=== PATIENT | female | born 1970 | race Caucasian/White ===

== ENCOUNTER 2024-04-12 15:26 | Outpatient (AMB) | payer BC, SELFPAY ==
[2024-04-12 15:25] VITALS: BP 98/66; PULSE 59; RESP 12; TEMP 36.9; O2SAT 99; BMI 25.1
--- NOTE | 2024-04-12 15:25 | A.OFFPC_ITS ---
Vital Signs 04/12/24 15:25 Height 5 ft 4 in Weight 146 lb 2 oz BMI 25.1 BP 98/66 Blood Pressure Location Rt brachial Position Sitting Respiration 12 Pulse 59 Pulse Source Pulse Oximeter Temp 98.4 F Temp Source Oral Pulse Oximetry (%) 99 Oxygen Delivery Method Room Air Intake Visit Reasons: NPV Intake Note: New patient visit Risk Manager Required: No Allergies morpine Allergy (Unknown, Uncoded 04/12/24 15:26) Hypotension Medication List - Last Reconciled 04/12/24 by Hyun Abbasi PA-C cholecalciferol (vitamin D3) 50 mcg PO DAILY multivitamin 1 tab PO DAILY Tobacco use date assessed: 03/21/24 Dental Screening Dental Screen Date: 03/21/24 HPI NPV HPI Details Patient is a 53-year-old female who presents today for a follow up. She is new to this practice and transferring from [facility]. She has a significant past medical history of asthma, vitamin-D deficiency, dyslipidemia, and insomnia. 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 Psych: Has tried trazodone but developed a headache with this. She tried amitriptyline we will found this ineffective for her insomnia. Wants to try something else. She is currently dealing with stressors with her daughter who suffers from severe anxiety. Mammogram: UTD Pap: Follows with Dr. Zamora, left oophrectomy Bone density: 2 years ago, normal Colonoscopy: April 2023, due in 10 years [facility] Medical History (Updated 04/12/24 @ 16:43 by Hyun Abbasi PA-C) Insomnia associated with menopause Asthma Environmental and seasonal allergies Hyperlipidemia Surgical History (Updated 04/12/24 @ 16:37 by Salma Mccoy CMA) H/O removal of cyst Family History (Updated 04/12/24 @ 16:39 by Salma Mccoy CMA) Mother No problems noted. Father No problems noted. Paternal Grandmother Colon cancer Social History Housing: House Patient Tobacco Use Status: Never used Tobacco e-Cigarette/Vaping Use: Never Used Second Hand Smoke Exposure: No service: No Current occupational exposures/hazards: No Cognitive needs: No Hearing needs: No Vision needs: No Questionnaire PHQ-9 Over the last 2 weeks, how often have you been bothered by any of the following problems? 1. Little interest or pleasure in doing things: not at all 2. Feeling down, depressed, or hopeless: not at all 3. Trouble falling or staying asleep, or sleeping too much: not at all 4. Feeling tired or having little energy: not at all 5. Poor appetite or overeating: not at all 6. Feeling bad about yourself - or that you are a failure or have let yourself or your family down: not at all 7. Trouble concentrating on things, such as reading the newspaper or watching television: not at all 8. Moving or speaking so slowly that other people could have noticed. Or the opposite - being so fidgety or restless that you have been moving around a lot more than usual: not at all 9. Thoughts that you would be better off or of hurting yourself in some way: not at all Total score: 0 Depression Screening Interpretation: Negative Depression Screening Done: Yes 37428 - PHQ-9 Billing: Yes Source: Developed by Drs. Tanner Arredondo, Bre Stout, Camacho Healy and colleagues, with an educational jose from [employer]™. Thrive Questionnaire Date Thrive assessed: 04/12/24 I am a: Patient What is your living situation today?: I have a steady place to live Within the past 12 months, did the food you bought not last and you didn't have the money to get more?: Never true Within the past 12 months, did you worry whether your food would run out before you got money to buy more?: Never true Do you have trouble paying for medicines?: No Do you have trouble getting transportation to medical appointments?: No Do you have trouble paying your heating and electricity bill?: No Do you have trouble taking care of your child, family member or friend?: No Do you have trouble with day-to-day activities such as bathing, preparing meals, shopping, managing finances, etc.?: No Are you currently unemployed and looking for a job?: No Are you interested in more education?: No Please select the resources that you would like help with: None Currently or been in a relationship where the following occur: no concerns reported THRIVE Score: 0 AUDIT C Alcohol Use Questionnaire (AUDIT-C) 1. How often do you have a drink containing alcohol?: Never 3. How often do you have six or more drinks on one occasion?: Never Total Score: 0 MARTÍN-7 AMB Questionnaire MARTÍN-7 Date MARTÍN - 7 assessed: 04/12/24 Feeling nervous, anxious, or on edge: 0 = Not at all Not being able to stop or control worryin = Not at all Worrying too much about different things: 0 = Not at all Trouble relaxin = Not at all Being so restless that it is hard to sit still: 0 = Not at all Becoming easily annoyed or irritable: 0 = Not at all Feeling afraid as if something awful might happen: 0 = Not at all Total MARTÍN-7 score (0-4 normal; 5-9 mild; 10-14 moderate; 15-21 severe): 0 Source: Developed by Drs. Tanner Arredondo, Bre Stout, Camacho Healy and colleagues, with an educational jose from [employer]™. MARTÍN-7 Assessment Billing MARTÍN-7 Assessment Tool: MARTÍN-7 Assessment 08180 Physical exam (Primary Care) Vital Signs: Last Vital Signs Temp 98.4 F 04/12/24 15:25 Pulse 59 04/12/24 15:25 Resp 12 04/12/24 15:25 BP 98/66 04/12/24 15:25 Pulse Ox 99 04/12/24 15:25 Oxygen Delivery Method Room Air 04/12/24 15:25 BMI result Body Mass Index 25.1 Tobacco/Smoking Status: Tobacco use Status Tobacco use date assessed 03/21/24 04/12/24 15:27 Patient Tobacco Use Status Never used Tobacco 04/12/24 15:27 e-Cigarette/Vaping Use Never Used 04/12/24 15:27 PHQ-9: PHQ-9 Score PHQ-9: Total score 0 04/12/24 16:05 Depression Screening Interpretation: Negative Thrive Assessment: Date of Thrive Assessment Date Thrive assessed 04/12/24 04/12/24 15:27 Currently or been in a relationship where the following occur: no concerns reported Const Orientation/consciousness: patient oriented x3 HENMT Ears: hearing grossly normal bilaterally Neck Thyroid: Thyroid normal Lymphatic: no lymphadenopathy noted Resp Auscultation: clear to auscultation bilaterally Cardio Rate: regular rate Rhythm: regular rhythm Heart sounds: S1 normal heart sound present and S2 normal heart sound present GI Inspection: Yes normal to inspection Palpation (GI): Soft to palpation and Other GI palpation findings present (nontender, no cva tenderness) Auscultation: normoactive bowel sounds Rectal Exam - Female: deferred Skin General skin exam: no rashes or lesions noted Neuro General: patient oriented x3, gait normal and no focal motor deficits Assessment and Plan Assessment & Plan (1) Hyperlipidemia: Code(s): E78.5 - Hyperlipidemia, unspecified Qualifiers: Hyperlipidemia type: pure hypercholesterolemia Qualified Code(s): E78.00 - Pure hypercholesterolemia, unspecified Plan: Lipids ordered. We will monitor. (2) Environmental and seasonal allergies: Code(s): J30.89 - Other allergic rhinitis Plan: Following with Allergy and immunology. Advised to try Xyzal and Flonase (3) Insomnia associated with menopause: Code(s): N95.1 - Menopausal and female climacteric states Plan: We will try hydroxyzine. Discussed risks and benefits and adverse effects. Plan Follow up in 3 months. Sooner if needed. Patient understands and agrees with the plan. Orders: Orders Complete Blood Count Auto Diff Today E78.00 - Pure hypercholesterolemia, unspecified, J30.89 - Other allergic rhinitis Lipid Panel Today E78.00 - Pure hypercholesterolemia, unspecified, J30.89 - Other allergic rhinitis TSH reflex Free T4 Today E78.00 - Pure hypercholesterolemia, unspecified, J30.89 - Other allergic rhinitis Comprehensive [place]. Panel Fast Today E78.00 - Pure hypercholesterolemia, unspecified, J30.89 - Other allergic rhinitis Referrals Dermatology Referral R23.9 - Unspecified skin changes Medications: New hydroxyzine HCl 25 mg PO BEDTIME 90 tabs 0RF Coding Level of Care Code Est Pt Level 4 (08672) Complex EM visit Add On G2211 Diagnoses Pure hypercholesterolemia E78.00 Hyperlipidemia type: pure hypercholesterolemia Environmental and seasonal allergies J30.89 Insomnia associated with menopause N95.1 Additional Codes MARTÍN-7 Assessment Billing - MARTÍN-7 Assessment Tool: MARTÍN-7 Assessment 69860 ([id number])
== END 2024-04-12 16:44 | disposition home or self-care (01) ==
PROVIDERS: Visit Provider Physician Assistant
DX: E78.00 Pure hypercholesterolemia, unspecified (principal); J30.89 Other allergic rhinitis; N95.1 Menopausal and female climacteric states
CPT/HCPCS: 99214; G2211

== ENCOUNTER 2024-05-29 09:30 | Outpatient (AMB) | payer BC, SELFPAY ==
--- NOTE | 2024-05-29 09:38 | MHC.OFFWIV ---
Intake Vital Signs 05/29/24 09:39 Height 5 ft 4 in Weight 148 lb BMI 25.4 BP 120/70 Blood Pressure Location Lt brachial Position Sitting Respiration 13 Pulse 70 Pulse Source Pulse Oximeter Pulse Oximetry (%) 98 Oxygen Delivery Method Room Air Intake Visit Reasons: est/ ear pain Intake Note: Patient is here with bilateral ear pain. Patient is supposed to fly next week. Patient reports her pcp is Luciana and she will be transferring to Dr. Sanchez. Patient Tobacco Use Status: Never used Tobacco Elevated Motorman Required: No Allergies morpine Allergy (Unknown, Uncoded 05/29/24 10:16) Hypotension Medication List - Last Reconciled 05/29/24 by Raysa Youngblood, [facility]- albuterol-budesonide 90-80 mcg/actuation (Airsupra) 2 inhalations inhalation Q4-6H PRN cetirizine (Zyrtec) 10 mg PO DAILY PRN cholecalciferol (vitamin D3) 50 mcg PO DAILY fluticasone propionate 50 mcg/actuation (Flonase Allergy Relief) 2 sprays intranasal DAILY hydroxyzine HCl 25 mg PO BEDTIME multivitamin 1 tab PO DAILY prednisone 20 mg PO BID Do you need a note to return to daycare/school/sports/work: No HPI HPI Comments History of Present Illness Details 53-year-old female here today with complaints of fluid in her ears. She reports a longstanding history fluid in both ears. Reports that her symptoms seem to get worse around February and March and then develop acute otitis media by June each year. She was referred to ENT in the past by her primary care. However she was not able to see the specialist. She was then referred to Allergy and immunology. During this visit around March she was told of scar tissue on the right with bulging but no infection. Facial x-ray, chest x-ray and labs were done at this time. She was also given to nasal sprays. A nasal sprays her helpful for about 3 weeks and then they stopped working. She returned to the office in April for re-evaluation. She was given a new nasal spray and told that the fluid was still present in her ears. Today she presents as she has flying on the to go on a cruise in his worried about the fluid in her ears. Further reports 10 days ago starting to feel like she was ?hit by a truck?, with mild congestion, heavy sensation in ears, muffled hearing and a hoarse voice. Home COVID test negative x2. Has tried several [id number]-kkj-mvqvngh medications to include Sudafed, NyQuil, Zyrtec along with the Neti pot without relief. She has since stopped using prescribed nasal sprays and is only using Flonase. She did go to urgent care yesterday for this complaint and was given a prescription for prednisone which she did not start yet. She just had an appointment with ENT scheduled for Wednesday with Dr. Mix at 09:00. Her insurance requires a referral for this She also would like to discuss insomnia. She is currently prescribed hydroxyzine 25 mg. sHe is taking 75 mg without relief. Has tried several uxbq-paj-zogibrx medications of which the active ingredients have been diphenhydramine. Wonders what else that she can take. She does report that she is prescribed trazodone 50 mg in the past as well without effect. EXAM: Awake alert NAD Sclera and conjunctiva clear bilat Nares patent, turbinates pale and edematous, no sinus tenderness with palpation bilat TM intact with effusions bilat, trace fluid bubbles on the right MMM, pharynx WNL RRR LS CTAB PFSH Medical History (Updated 05/29/24 @ 11:15 by [facility]) Insomnia associated with menopause Asthma Environmental and seasonal allergies Hyperlipidemia Surgical History (Updated 04/12/24 @ 16:37 by Salma Mccoy CMA) H/O removal of cyst Family History (Updated 04/12/24 @ 16:39 by Salma Mccoy CMA) Mother No problems noted. Father No problems noted. Paternal Grandmother Colon cancer Social History (Updated 04/12/24 @ 16:37 by Salma Mccoy CMA) Housing: House Patient Tobacco Use Status: Never used Tobacco e-Cigarette/Vaping Use: Never Used Second Hand Smoke Exposure: No service: No Current occupational exposures/hazards: No Cognitive needs: No Hearing needs: No Vision needs: No Review of Systems Const All systems reviewed & are unremarkable except as noted in HPI and below Physical Exam Vital Signs: Last Vital Signs Pulse 70 05/29/24 09:39 Resp 13 05/29/24 09:39 BP 120/70 05/29/24 09:39 Pulse Ox 98 05/29/24 09:39 Oxygen Delivery Method Room Air 05/29/24 09:39 BMI result Body Mass Index 25.4 Assessment & Plan Assessment & Plan (1) Insomnia associated with menopause: Code(s): N95.1 - Menopausal and female climacteric states (2) Eustachian tube dysfunction: Code(s): H69.90 - Unspecified Eustachian tube disorder, unspecified ear Qualifiers: Laterality: bilateral Qualified Code(s): H69.93 - Unspecified Eustachian tube disorder, bilateral Plan: . Plan . This note is constructed using voice recognition software. While every effort has been made to ensure accuracy in field irrigation worker, still errors may have been included Sometimes, these errors may affect the content or meaning of the given sentence . Total time spent caring for the patient today was 40 minutes. This includes time spent before the visit reviewing the chart, time spent during the visit, and time spent after the visit on documentation Patient Instructions: Start prednisone so that you complete course on Wednesday, before you see ENT PCP notified of need for ENT referral Try unisom 1/2-1 tab as needed for sleep OTC STOP hydroxyzine Use Afrin x 1 before flight and then no more OK for saline nasal rinses and to cont flonase RTO for est care appt, sooner as needed Coding Level of Care Code Est Pt Level 5 (62852) Diagnoses Insomnia associated with menopause N95.1 Dysfunction of both eustachian tubes H69.93 Laterality: bilateral
[2024-05-29 09:39] VITALS: BP 120/70; PULSE 70; RESP 13; O2SAT 98; BMI 25.4
== END 2024-05-29 11:10 | disposition home or self-care (01) ==
PROVIDERS: PCP Physician Assistant; Visit Provider Nurse Practitioner Family
DX: N95.1 Menopausal and female climacteric states (principal); H69.93 Unspecified Eustachian tube disorder, bilateral
CPT/HCPCS: 99215

== ENCOUNTER → 2024-08-08 15:33 | Outpatient (AMB) | payer BC, SELFPAY ==
--- NOTE | 2024-08-08 15:35 | MHC.PC.OV ---
Vital Signs 08/08/24 15:39 Height 5 ft 4 in Weight 151 lb 4 oz BMI 26.0 BP 130/70 Blood Pressure Location Rt brachial Position Sitting Respiration 15 Pulse 60 Pulse Source Pulse Oximeter Pulse Oximetry (%) 96 Oxygen Delivery Method Room Air Intake Visit Reasons: cpe trans of care to micha Intake Note: physical and to establish care with micha. Allergies morpine Allergy (Unknown, Uncoded 05/29/24 10:16) Hypotension Medication List - Last Reconciled 08/08/24 by Raysa Youngblood, [facility]- albuterol-budesonide 90-80 mcg/actuation (Airsupra) 2 inhalations inhalation Q4-6H PRN cetirizine (Zyrtec) 10 mg PO DAILY PRN cholecalciferol (vitamin D3) 50 mcg PO DAILY fluticasone propionate 50 mcg/actuation (Flonase Allergy Relief) 2 sprays intranasal DAILY hydroxyzine HCl 100 mg (2 x 50 mg) PO BEDTIME multivitamin 1 tab PO DAILY Tobacco use date assessed: 08/08/24 Dental Screening Dental Screen Date: 08/08/24 Did you have a dental visit in the last 12 months?: Yes Did you have a dental problem in the last 6 months where you did not have access to dental care?: No Was dental information given to patient?: Patient has dentist HPI HPI Comments History of Present Illness Details 53-year-old female with mild intermittent asthma, vitamin-D deficiency, hyperlipidemia, insomnia, seasonal allergies s/p removal of cyst, L shoulder surgery 07/28/24 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 CVD Health maintenance Mammogram: UTD Pap: Follows with Dr. Zamora, left oophrectomy 2021 Bone density: 2021 years ago, normal Colonoscopy: April 2023, due in 10 years Tdap unknown last date Specialists: [facility] Ortho Counselor Here today for CPE. Status post left shoulder surgery 07/28/2024 for calcifications and a cyst. Performed by [facility]. Was prescribed oxycodone and Tylenol for pain management. She did develop nausea and vomiting. This resolved once she stopped. She started to use a leave for better pain control. She did develop constipation as a result of the oxycodone. Used Erasmo seeds and Dulcolax to help without relief. She goes for her postop follow up tomorrow. She is active with physical therapy for her recovery. She would have a consult with ENT for her chronic Eustachian tube dysfunction. She also had pulmonary function testing done. Reports that she did not do so well. I do not have a copy of this report. Be that as it may she is prescribed airsupra however does not take as she does not feel like her asthma symptoms are that bad. She does use a p.r.n. albuterol as needed especially during cold season and exercises. She also was undergoing allergy testing however this was done while she was on hydroxyzine therefore the results were skewed. She will be returning for a repeat. In regards to her asthma she was able to run a [address] race without any symptoms. She is in counseling, mood is stable. Has chronic insomnia. Trazodone in the past gave her headache. Currently using hydroxyzine. Self increase to 100 mg which seems to help with the insomnia although she still is not sleeping through the night. Occasionally uses melatonin addition. She did have a dermatology evaluation, reports that the exam was clear. I do not have that report. She is up-to-date on her eye exam. Routine follow up with dentist. Plan Try miralax to help w constipation, if not effective can try EVOO Try Unisom to help sleep. Discouraged increase in hydroxyzine any further. Continue take all medications as prescribed. Continue follow up with care team Recommend Flu, covid, tdap and pcv vaccines Fasting labs to be done as soon as possible please. Return to the office in 6 months for routine follow up, sooner as needed. This note is constructed using voice recognition software. While every effort has been made to ensure accuracy in drafter directional survey, still errors may have been included Sometimes, these errors may affect the content or meaning of the given sentence . [facility] Medical History (Updated 08/08/24 @ 17:02 by CHUY Grant-BERTIN) Insomnia associated with menopause Asthma Environmental and seasonal allergies Hyperlipidemia Surgical History (Updated 08/08/24 @ 17:02 by MERCY Grant) Status post shoulder surgery H/O removal of cyst Family History (Updated 04/12/24 @ 16:39 by Salma Mccoy CMA) Mother No problems noted. Father No problems noted. Paternal Grandmother Colon cancer Social History (Updated 04/12/24 @ 16:37 by Salma Mccoy CMA) Housing: House Patient Tobacco Use Status: Never used Tobacco e-Cigarette/Vaping Use: Never Used Second Hand Smoke Exposure: No service: No Current occupational exposures/hazards: No Cognitive needs: No Hearing needs: No Vision needs: No Questionnaire PHQ-9 Over the last 2 weeks, how often have you been bothered by any of the following problems? 1. Little interest or pleasure in doing things: not at all 2. Feeling down, depressed, or hopeless: not at all 3. Trouble falling or staying asleep, or sleeping too much: more than half the days 4. Feeling tired or having little energy: not at all 5. Poor appetite or overeating: not at all 6. Feeling bad about yourself - or that you are a failure or have let yourself or your family down: not at all 7. Trouble concentrating on things, such as reading the newspaper or watching television: not at all 8. Moving or speaking so slowly that other people could have noticed. Or the opposite - being so fidgety or restless that you have been moving around a lot more than usual: not at all 9. Thoughts that you would be better off or of hurting yourself in some way: not at all Total score: 2 Depression Screening Interpretation: Negative Depression Screening Done: Yes 09806 - PHQ-9 Billing: Yes Source: Developed by Drs. Tanner Arredondo, Bre Stout, Camacho Healy and colleagues, with an educational jose from [employer]. Thrive Questionnaire Date Thrive assessed: 08/08/24 I am a: Patient What is your living situation today?: I have a steady place to live Within the past 12 months, did the food you bought not last and you didn't have the money to get more?: Never true Within the past 12 months, did you worry whether your food would run out before you got money to buy more?: Never true Do you have trouble paying for medicines?: No Do you have trouble getting transportation to medical appointments?: No Do you have trouble paying your heating and electricity bill?: No Do you have trouble taking care of your child, family member or friend?: No Do you have trouble with day-to-day activities such as bathing, preparing meals, shopping, managing finances, etc.?: No Are you currently unemployed and looking for a job?: No Are you interested in more education?: No Please select the resources that you would like help with: None THRIVE Score: 0 AUDIT C Alcohol Use Questionnaire (AUDIT-C) 1. How often do you have a drink containing alcohol?: Monthly or less 2. How many drinks containing alcohol do you have on a typical day when you are drinking?: 1 or 2 3. How often do you have six or more drinks on one occasion?: Never Total Score: 1 Score Reviewed/Action Taken: Yes MARTÍN-7 AMB Questionnaire MARTÍN-7 Date MARTÍN - 7 assessed: 08/08/24 Feeling nervous, anxious, or on edge: 0 = Not at all Not being able to stop or control worryin = Not at all Worrying too much about different things: 0 = Not at all Trouble relaxin = Not at all Being so restless that it is hard to sit still: 0 = Not at all Becoming easily annoyed or irritable: 0 = Not at all Feeling afraid as if something awful might happen: 0 = Not at all Total MARTÍN-7 score (0-4 normal; 5-9 mild; 10-14 moderate; 15-21 severe): 0 Source: Developed by Drs. Tanner Arredondo, Bre Stout, Camacho Healy and colleagues, with an educational jose from [employer]. MARTÍN-7 Assessment Billing MARTÍN-7 Assessment Tool: MARTÍN-7 Assessment 84467 ACT Questionnaire In the past 4 weeks, how much of the time did your asthma keep you from getting as much done at work, school or at home?: None of the time During the past 4 weeks, how often have you had shortness of breath?: 1-2 times a week During the past 4 weeks, how often did your asthma symptoms wake you up at night or earlier than usual in the morning?: Not at all During the past 4 weeks, how often have you had to use your rescue inhaler or nebulizer medication?: Not at all How would you rate your asthma control during the past 4 weeks?: Well controlled ACT Interpretation: Negative Score: 23 Review of Systems Const Details: Constitutional: Denies fever. Skin: Denies rash. Eye: Denies eye pain. ENMT: Denies sore throat and nasal congestion. Respiratory: Denies shortness of breath and cough. Gastrointestinal: Denies nausea, vomiting or abdominal pain. Cardiovascular: Denies chest pain and syncope. Genitourinary: Denies dysuria. Musculoskeletal: Denies back pain and extremity pain. Neurologic: Denies headaches, confusion, and weakness. Psychiatric: Denies suicidal thoughts and substance abuse. Allergy/ Immunologic: Denies impaired immunity. Physical exam (Primary Care) Vital Signs: Last Vital Signs Pulse 60 08/08/24 15:39 Resp 15 08/08/24 15:39 BP 130/70 08/08/24 15:39 Pulse Ox 96 08/08/24 15:39 Oxygen Delivery Method Room Air 08/08/24 15:39 BMI result Body Mass Index 26.0 Tobacco/Smoking Status: Tobacco use Status Tobacco use date assessed 08/08/24 08/08/24 15:41 Patient Tobacco Use Status Never used Tobacco 08/08/24 15:36 e-Cigarette/Vaping Use Never Used 08/08/24 15:36 PHQ-9: PHQ-9 Score PHQ-9: Total score 2 08/08/24 15:51 Depression Screening Interpretation: Negative Thrive Assessment: Date of Thrive Assessment Date Thrive assessed 08/08/24 08/08/24 15:43 Const Other: General: Well developed, well nourished, in no acute distress. Appears stated age. Head: Normocephalic, atraumatic. Eyes: Pupils are equal, round and reactive to light and accommodation. Conjunctivae are clear. Vision grossly normal. Ears: TMs clear AU, EACS WNL Nose: Patent, without discharge. Mouth: There are no ulcers or lesions noted. No inflammation, no post nasal drip, no plaques nor exudates. Neck: Supple, no adenopathy or thyromegaly. Lungs: Clear to auscultation bilaterally. No rales, rhonchi or wheeze noted. Good air flow in all nieves. Heart: Regular rate and rhythm. No murmurs, click, rubs or gallops are noted. Abdomen: Bowel sounds present in all quadrants. The abdomen is soft, nontender, with no masses or organomegaly noted. No hernias are noted. With palpation in the right upper quadrant, patient did wince. There was no rebound tenderness. She did not complain of any abdominal pain prior to the onset of the exam. Musculoskeletal: Joints are nontender, without swelling, redness, or effusions. Range of motion is observed to be normal. Left shoulder with restricted range of motion in the postoperative period, to single sutures noted to left deltoid, free of infection. Pulses: Peripheral pulses are equal and palpable bilaterally. Extremities: No clubbing, cyanosis nor edema is noted. Neurologic: Gait and station normal. Cranial Nerves 2-12 intact. Motor strength grossly symmetrical and intact. No sensory loss. Balance normal. Skin: No rashes, ulcers, or lesions noted. Turgor is good. Skin color is good. Hair and nails are without abnormalities. Psych: Normal eye contact, affect and mood appropriate, and normal interactions. Patient is alert and appropriate to context. Assessment and Plan Assessment & Plan (1) Encounter for general adult medical examination without abnormal findings: Code(s): Z00.00 - Encounter for general adult medical examination without abnormal findings (2) Eustachian tube dysfunction: Code(s): H69.90 - Unspecified Eustachian tube disorder, unspecified ear Qualifiers: Laterality: bilateral Qualified Code(s): H69.93 - Unspecified Eustachian tube disorder, bilateral (3) Insomnia associated with menopause: Code(s): N95.1 - Menopausal and female climacteric states (4) Environmental and seasonal allergies: Code(s): J30.89 - Other allergic rhinitis (5) Hyperlipidemia: Code(s): E78.5 - Hyperlipidemia, unspecified Qualifiers: Hyperlipidemia type: pure hypercholesterolemia Qualified Code(s): E78.00 - Pure hypercholesterolemia, unspecified (6) Right upper quadrant pain: Code(s): R10.11 - Right upper quadrant pain (7) Mild intermittent asthma in adult without complication: Code(s): J45.20 - Mild intermittent asthma, uncomplicated (8) Status post shoulder surgery: Comment: left 07/28/24 [facility] Code(s): Z98.890 - Other specified postprocedural states Orders: Orders Vitamin B12 and Folate Today Z00.00 - Encounter for general adult medical examination without abnormal findings Vitamin D 25-OH Total Today Z00.00 - Encounter for general adult medical examination without abnormal findings Amylase Today Z00.00 - Encounter for general adult medical examination without abnormal findings Lipase Today Z00.00 - Encounter for general adult medical examination without abnormal findings Comprehensive [place]. Panel Fast Today Z00.00 - Encounter for general adult medical examination without abnormal findings Complete Blood Count no Diff Today Z00.00 - Encounter for general adult medical examination without abnormal findings Hemoglobin A1c Today Z00.00 - Encounter for general adult medical examination without abnormal findings Lipid Panel Today Z00.00 - Encounter for general adult medical examination without abnormal findings Microalbumin, Random (w Creat) Today Z00.00 - Encounter for general adult medical examination without abnormal findings TSH reflex Free T4 Today Z00.00 - Encounter for general adult medical examination without abnormal findings Medications: New albuterol sulfate 90 mcg/actuation 2 puffs inhalation Q4-6H 30 days PRN 8.5 grams 0RF shortness of breath or wheezing Coding Level of Care Code Est Pt Prev Care 40-64y(86523) Diagnoses Encounter for general adult medical examination without abnormal findings Z00.00 Dysfunction of both eustachian tubes H69.93 Laterality: bilateral Insomnia associated with menopause N95.1 Environmental and seasonal allergies J30.89 Pure hypercholesterolemia E78.00 Hyperlipidemia type: pure hypercholesterolemia Right upper quadrant pain R10.11 Mild intermittent asthma in adult without complication J45.20 Status post shoulder surgery Z98.890 Additional Codes MARTÍN-7 Assessment Billing - MARTÍN-7 Assessment Tool: MARTÍN-7 Assessment 27372 ([id number])
[2024-08-08 15:39] VITALS: BP 130/70; PULSE 60; RESP 15; O2SAT 96; BMI 26.0
== END ==
PROVIDERS: PCP Physician Assistant; Visit Provider Nurse Practitioner Family
DX: Z00.00 Encounter for general adult medical examination without abnormal findings (principal); H69.93 Unspecified Eustachian tube disorder, bilateral; N95.1 Menopausal and female climacteric states; J30.89 Other allergic rhinitis; E78.00 Pure hypercholesterolemia, unspecified; R10.11 Right upper quadrant pain; J45.20 Mild intermittent asthma, uncomplicated; Z98.890 Other specified postprocedural states
CPT/HCPCS: 99396

== ENCOUNTER 2024-08-12 07:22 | Outpatient (REF) | payer BC, SELFPAY ==
[2024-08-12 07:50] LABS: MANUAL DIFF FLAG NO
[2024-08-12 08:55] LABS: Basophils Absolute Auto 0.1 X10*3/uL (0.0-0.2); Basophils Percent Auto 1.9 % (0-2); Eosinophils Absolute Auto 0.2 X10*3/uL (0.0-0.4); Eosinophils Percent Auto 4.9 % (0-4); Hemoglobin 13.7 g/dl (12.0-16.0); Imm Gran Abs Auto 0.01 X10*3/uL (0.00-0.03); Imm Gran Pct Auto 0.2 % (0.0-0.4); Lymphocytes Absolute Auto 1.5 X10*3/uL (1.2-4.9); Lymphocytes Percent Auto 35.6 % (20-40); Mean Corpuscular HGB Conc 33.4 g/dl (31.0-35.0); Mean Corpuscular Hemoglobin 30.2 pg (27.0-33.0); Mean Corpuscular Volume 90.3 fL (80.0-98.0); Monocytes Absolute Auto 0.3 X10*3/uL (0.1-1.2); Neutrophils Absolute Auto 2.1 x10*3/uL (2.0-8.3); Neutrophils Percent Auto 49.4 % (45-73); Platelet Count 274 X10*3/uL (160-400); Red Blood Count 4.54 X10*6/uL (4.20-5.50); Red Cell Distribution Width 11.8 % (11.0-16.0); White Blood Count 4.3 X10*3/uL (4.8-10.8)
[2024-08-12 09:10] LABS: Estimated Average Glucose 103 mg/dL; Hemoglobin A1c % 5.2 % (<6.0)
[2024-08-12 09:20] LABS: Amylase 76 U/L (28-100)
[2024-08-12 09:30] LABS: Alanine Aminotransferase 20 U/L (0-31); Albumin Level 4.3 g/dL (3.5-5.0); Alkaline Phosphatase 50 U/L (39-117); Anion Gap 11 (12-20); Aspartate Amino Transferase 26 U/L (5-31); Bilirubin Total 0.5 mg/dL (0.0-1.0); Blood Urea Nitrogen 11 mg/dL (9-16); Carbon Dioxide 29 mmol/L (22-29); Chloride 103 mmol/L (96-108); Cholesterol 258 mg/dL (<200); Estimated Glomerular Filt Rate > 60; Glucose Fasting 102 mg/dL (60-99); HDL Cholesterol 85 mg/dL (>40); LDL Cholesterol Calculated 163 mg/dL (<100); Lipase 24 U/L (8-78); Potassium 4.2 mmol/L (3.3-5.1); Sodium 139 mmol/L (135-145); Total Protein 7.1 g/dL (6.5-8.0); Triglycerides 52 mg/dL (<150)
[2024-08-12 09:37] LABS: TSH reflex Free T4 2.34 uIU/mL (0.32-4.0)
[2024-08-12 09:49] LABS: Vitamin D 25-OH Total 63.9 ng/mL (>30)
[2024-08-12 09:57] LABS: Microalbumin Urine < 5.0 mg/L
[2024-08-12 10:46] LABS: Folate 16.7 ng/mL (> or = 4.0); Vitamin B12 1105 pg/mL (200-900)
== END 2024-08-12 07:23 | disposition home or self-care (01) ==
LOC: HO.LAB 07:22
PROVIDERS: Physician Assistant; PCP Nurse Practitioner Family; Visit Provider Nurse Practitioner Family
DX: Z00.00 Encounter for general adult medical examination without abnormal findings (principal); E78.00 Pure hypercholesterolemia, unspecified; J30.89 Other allergic rhinitis; Z13.1 Encounter for screening for diabetes mellitus
CPT/HCPCS: 36415; 80053; 80061; 82043; 82150; 82306; 82570; 82607; 82746; 83036; 83690; 84443; 85025; 85027

== ENCOUNTER 2024-10-17 10:27 | Outpatient (AMB) | payer BC, SELFPAY ==
--- NOTE | 2024-10-17 10:29 | A.OFFPC_ITS ---
Vital Signs 10/17/24 10:31 Height 5 ft 4 in Weight 151 lb BMI 25.9 BP 132/82 Blood Pressure Location Lt brachial Position Sitting Respiration 13 Pulse 68 Pulse Source Pulse Oximeter Pulse Oximetry (%) 100 Oxygen Delivery Method Room Air Intake Visit Reasons: Tightness in chest Intake Note: Patient complaining of tightness in chest Barrer And Tacker Required: No Allergies morpine Allergy (Unknown, Uncoded 05/29/24 10:16) Hypotension Medication List - Last Reconciled 10/17/24 by TRI GrantP- albuterol sulfate 90 mcg/actuation 2 puffs inhalation Q4-6H PRN 30 days albuterol-budesonide 90-80 mcg/actuation (Airsupra) 2 inhalations inhalation Q4- 6H PRN cetirizine (Zyrtec) 10 mg PO DAILY PRN cholecalciferol (vitamin D3) 50 mcg PO DAILY fluticasone propionate 50 mcg/actuation (Flonase Allergy Relief) 2 sprays intranasal DAILY hydroxyzine HCl 100 mg (2 x 50 mg) PO BEDTIME multivitamin 1 tab PO DAILY Tobacco use date assessed: 08/08/24 Dental Screening Dental Screen Date: 08/08/24 HPI HPI Comments History of Present Illness Details Chief Complaint The patient reports experiencing tightness across the chest reminiscent of a cramp sensation. History of Present Illness The patient is a 53-year-old female presenting with episodes of chest tightness. This symptom began abruptly last week while she was completing a course of prednisone for management of shoulder pain post-surgery. She describes the chest discomfort as a cramping sensation across the upper chest, which tightens like a vice blow pit helper, occurring both last week and again this morning. The initial episode occurred during prednisone tapering, characterized by intense tightness without any associated gastrointestinal symptoms. The second episodic occurrence happened while she was making the bed, described similarly to a muscle cramp but localized in the chest area. The patient denies changes in diet or lifestyle that might have contributed to the episodes. Additionally, the patient has a history of L shoulder pain following surgical intervention, which persisted despite undergoing physical therapy. She had consulted a physiotherapist who suggested possible cervical issues contributing to her pain, recommending a cervical MRI to assess potential discogenic involvement with a focus on the brachial plexus. Prior to surgery, no MRI was conducted, and during recent assessments, nerve pain was considered which led to improvements with prednisone treatment. The patient's elevated cholesterol levels have been noted previously, and an upcoming appointment was scheduled to address this concern. Health Maintenance - Discussion on cholesterol management w as noted for an upcoming visit but not detailed in this conversation. - Stress test history includes no prior cardiac stress tests for the patient. Review of Systems - Cardiovascular: Reports episodes of ch est tightness, likened to muscle cramps. - Musculoskeletal: Denies current should er pain but reports a history of shoulder surgery and subsequent pain. Physical Exam Awake alert NAD - Cardiovascular- Heart sounds were norm al. - Respiratory- Lung sounds were clear on auscultation. - Musculoskeletal- Chest wall tenderness noted upon palpation L side, but not replicating the described cramping sensation. BARAHONA x 4 Results - EKG: Unremarkable, with normal finding s reported. Patient was informed and verbally consented to the use of an ambient scribe for clinic note documentation during this visit. Patient Instructions - Schedule a cervical MRI at the [facility]. - Arrange for a cardiac stress test thro [facility]. - Monitor for any further episodes of ch est tightness, particularly if associated with symptoms such as sweating, nausea, or prolonged discomfort, which would warrant a visit to the emergency room. - Prepare for the scheduled cholesterol evaluation and adhere to any preparatory instructions provided by staff. - Contact the clinic if there are questi ons or worsening symptoms. Total time spent caring for the patient today was 40 minutes. This includes time spent before the visit reviewing the chart, time spent during the visit, and time spent after the visit on documentation PFSH Medical History (Updated 10/17/24 @ 12:03 by CHUY Grant-BERTIN) Insomnia associated with menopause Asthma Environmental and seasonal allergies Hyperlipidemia Surgical History (Updated 08/08/24 @ 17:02 by CHUY Grant-BERTIN) Status post shoulder surgery H/O removal of cyst Family History (Updated 04/12/24 @ 16:39 by Salma Mccoy CMA) Mother No problems noted. Father No problems noted. Paternal Grandmother Colon cancer Social History (Updated 04/12/24 @ 16:37 by Salma Mccoy CMA) Housing: House Patient Tobacco Use Status: Never used Tobacco e-Cigarette/Vaping Use: Never Used Second Hand Smoke Exposure: No service: No Current occupational exposures/hazards: No Cognitive needs: No Hearing needs: No Vision needs: No Questionnaire Thrive Questionnaire Date Thrive assessed: 10/17/24 I am a: Patient What is your living situation today?: I have a steady place to live Within the past 12 months, did the food you bought not last and you didn't have the money to get more?: Never true Within the past 12 months, did you worry whether your food would run out before you got money to buy more?: Never true Do you have trouble paying for medicines?: No Do you have trouble getting transportation to medical appointments?: No Do you have trouble paying your heating and electricity bill?: No Do you have trouble taking care of your child, family member or friend?: No Do you have trouble with day-to-day activities such as bathing, preparing meals, shopping, managing finances, etc.?: No Are you currently unemployed and looking for a job?: No Are you interested in more education?: No Please select the resources that you would like help with: None Currently or been in a relationship where the following occur: No concerns reported THRIVE Score: 0 AUDIT C Alcohol Use Questionnaire (AUDIT-C) 1. How often do you have a drink containing alcohol?: Monthly or less 2. How many drinks containing alcohol do you have on a typical day when you are drinking?: 1 or 2 3. How often do you have six or more drinks on one occasion?: Never Total Score: 1 MARTÍN-7 AMB Questionnaire MARTÍN-7 Date MARTÍN - 7 assessed: 08/08/24 Feeling nervous, anxious, or on edge: 0 = Not at all Not being able to stop or control worryin = Not at all Worrying too much about different things: 0 = Not at all Trouble relaxin = Not at all Being so restless that it is hard to sit still: 0 = Not at all Becoming easily annoyed or irritable: 0 = Not at all Feeling afraid as if something awful might happen: 0 = Not at all Total MARTÍN-7 score (0-4 normal; 5-9 mild; 10-14 moderate; 15-21 severe): 0 Source: Developed by Drs. Tanner Arredondo, Bre Stout, Camacho Healy and colleagues, with an educational jose from [employer]. Physical exam (Primary Care) Vital Signs: Last Vital Signs Pulse 68 10/17/24 10:31 Resp 13 10/17/24 10:31 BP 132/82 10/17/24 10:31 Pulse Ox 100 10/17/24 10:31 Oxygen Delivery Method Room Air 10/17/24 10:31 BMI result Body Mass Index 25.9 Tobacco/Smoking Status: Tobacco use Status Tobacco use date assessed 08/08/24 10/17/24 10:30 Patient Tobacco Use Status Never used Tobacco 10/17/24 10:30 e-Cigarette/Vaping Use Never Used 10/17/24 10:30 Thrive Assessment: Date of Thrive Assessment Date Thrive assessed 10/17/24 10/17/24 10:30 Currently or been in a relationship where the following occur: No concerns reported Office Procedures EKG [id number], Complete Coding Level of Care Code Est Pt Level 5 (71476) Complex EM visit Add On G2211 Diagnoses Cervical radicular pain M54.12 Chest pain, unspecified type R07.9 Chest pain type: unspecified CPT Codes EKG - CPT: 75934-[id number], Complete ([id number]) Assessment & Plan Assessment & Plan (1) Cervical radicular pain: Code(s): M54.12 - Radiculopathy, cervical region Category: Medical (2) Chest pain: Code(s): R07.9 - Chest pain, unspecified Category: Medical Qualifiers: Chest pain type: unspecified Qualified Code(s): R07.9 - Chest pain, unspecified Plan . Orders: Orders CA stress test Today R07.9 - Chest pain, unspecified AMB EKG-In Office Today Z13.6 - Encounter for screening for cardiovascular disorders MR cervical spine w con Today M54.12 - Radiculopathy, cervical region
[2024-10-17 10:31] VITALS: BP 132/82; PULSE 68; RESP 13; O2SAT 100; BMI 25.9
== END 2024-10-17 11:22 | disposition home or self-care (01) ==
PROVIDERS: PCP Nurse Practitioner Family; Visit Provider Nurse Practitioner Family
DX: M54.12 Radiculopathy, cervical region (principal); R07.9 Chest pain, unspecified

== ENCOUNTER → 2024-10-17 10:27 | Outpatient (BNVA) | payer BC, SELFPAY | PROVIDERS: PCP Nurse Practitioner Family; Visit Provider Nurse Practitioner Family | DX: R07.9 Chest pain, unspecified (principal); M54.12 Radiculopathy, cervical region | CPT/HCPCS: 93005 ==

== ENCOUNTER → 2024-10-20 08:58 | Outpatient (REF) | payer BC, SELFPAY ==
--- NOTE | 2024-10-20 09:01 | CA_ITS ---
Acquisition Time: 2024-10-20 09:31:03 Total Exercise Time: 00:09:21 Test Indications: R07.9 - Chest pain, unspecified Medications: SEE h Protocol: DINA Max HR: 166 BPM 99% of Pred: 167 BPM Max BP: 170/080 mmHG Max Work Load: 10.6 METS Exercise stress test with exercise 9 min 21 sec of Dina protocol, achieving 99% MPHR, without anginal symptoms, with one PVC, with normotensive response to exercise, without EKG changes meeting criteria for ischemia. Test reviewed with Dr King Referred By: Raysa Youngblood Overread By: MARGY GRAVES
== END ==
LOC: HO.CARD 08:58
PROVIDERS: PCP Nurse Practitioner Family; Visit Provider Nurse Practitioner Family
DX: R07.9 Chest pain, unspecified (principal)
CPT/HCPCS: 93017

== ENCOUNTER → 2024-10-20 09:01 | Outpatient (BNV) | payer BC, SELFPAY | PROVIDERS: PCP Nurse Practitioner Family; Visit Provider Nurse Practitioner Family | DX: I49.3 Ventricular premature depolarization (principal) | CPT/HCPCS: 93016; 93018 ==

== ENCOUNTER 2024-11-23 10:20 | Outpatient (REF) | payer BC, SELFPAY ==
--- OUTSIDE RECORDS SUMMARY | 2024-11-23 10:23 | XMS_ITS | Continuity of Care Document ---
Author Organization [facility] ter Address [address] [place] [id number]- Care Team Providers Care Process Safety Manager Name Role Phone Oneyda Alexander Primary Care Physician Encounter 11/17/24 - 11/18/[address] [address]- Attending Physician: Not on Staff, Attending MD Referring Physician: Not on Staff, Referring MD Encounter Type: [facility]RI Allergies, Adverse Reactions, Alerts Substance Criticality Severity Reaction Reaction Severity Status morphine Active Immunizations Given and Recorded Vaccine Date Status Refusal Reason SARS-CoV-2 mRNA (tojellyn 6m-4y) vacc 03/06/22 Recorded SARS-CoV-2 (COVID-19) mRNA BNT-162b2 vac 03/05/21 Recorded SARS-CoV-2 (COVID-19) mRNA BNT-162b2 vac 02/12/21 Recorded influenza virus vaccine, inactivated 09/04/20 [place] rded influenza virus vaccine, inactivated 11/07/07 [place] rded influenza virus vaccine, inactivated 09/22/04 [place] r[place] Tetanus Toxoid 11/29/13 Recorded pneumococcal 23-valent vaccine 11/07/07 Recorded tetanus-diphtheria toxoids (Td) 12/21/00 Recorded Medications Albuterol (Eqv-ProAir HFA) 90 mcg/inh inhalation aerosol 2 puffs, Inhalation, Every 6 hours, PRN Wheezing/Shortness of Breath, # 8.5 Gm, 1 Refills, Maintenance, 11/26/23 10:59:00 AM EST, [facility]/pharmacy #[id number], Partial fill upon patient request if the prescription is for a schedule II opioid drug., 2 puffs Inhalation Every 6 hours,PRN:Wheezing/Shortness of Breath, 163, cm, 11/26/23 10:40:00 EST, Height, 66.1, kg, 05/03/23 7:47:00 EDT, Dry Weight Start Date: 11/26/23 Status: Ordered Quantity: 8.5 Unit: g Repeat number: 2 Claritin 10 mg oral tablet 10 mg, 1, tablet, By Mouth, Daily, # 30 tablet, Refills 0, Maintenance, 11/26/23 10:39:00 AM EST, Partial fill upon patient request if the prescription is for a schedule II opioid drug. Start Date: 11/26/23 Status: Ordered Quantity: 30.0 Unit: tablet Repeat number: 1 cyclobenzaprine 10 mg oral tablet 10 mg, 1, tablet, By Mouth, 3 times a day, PRN, # 30 tablet, Refills 0, Tot. Refills 0, Maintenance, for spasm, 12/03/23 9:05:00 AM EST, Route to Pharmacy Electronically, [facility]/pharmacy #[id number], Partial fill upon patient request if the prescription is for a schedule II opioid drug., 163, cm, 11/26/23 10:40:00 EST, Height, 66.1, kg, 05/03/23 7:47:00 EDT, Dry Weight Start Date: 12/03/23 Status: Ordered Quantity: 30.0 Unit: tablet Repeat number: 1 Flovent HFA 110 mcg/inh inhalation aerosol 2 puffs, Inhalation, 2 times a day, # 12 Gm, 0 Refills, Maintenance, 07/13/22 2:50:00 PM EDT, Aerosol, [facility]/pharmacy #[id number], Partial fill upon patient request if the prescription is for a schedule II opioid drug., 164.1, cm, 07/13/22 14:02:00 EDT, Height, 62, kg, 04/22/22 12:17:00 EDT, Dry Weight Start Date: 07/13/22 Status: Ordered Quantity: 12.0 Unit: g Repeat number: 1 Melatonin Daily at bedtime, 0 Refills, Maintenance, 04/15/22 5:39:00 PM EDT, Partial fill upon patient requestif the prescription is for a schedule II opioid drug. Start Date: 04/15/22 Status: Ordered Repeat number: 1 Multivitamin Daily, 0 Refills, Maintenance, 04/15/22 5:39:00 PM EDT, Partial fill upon patient request if the prescription is for a schedule II opioid drug. Start Date: 04/15/22 Status: Ordered Repeat number: 1 NuLYTELY with Flavor Packs oral powder for reconstitution 240 mL, By Mouth, Every 10 minutes, May substitute any PEG 3350 solution available SPLIT PREP METHOD, # 1 each, 0 Refills, Maintenance, 12/06/22 5:00:00 PM EST, REC Powder, [facility]/pharmacy #[id number], test date 12/07/22, 240 mL By Mouth Every 10 minutes,Instr:May substitute any PEG 3350 solution available; SPLIT PREP METHOD, 164.1, cm, 07/13/22 14:02:00 EDT, Height, 62, kg, 04/22/22 12:17:00 EDT, Dry Weight Start Date: 12/06/22 Status: Ordered Quantity: 1.0 Unit: each Repeat number: 1 traZODone 50 mg oral tablet 50 mg, 1, tablet, By Mouth, Daily at bedtime, # 90 tablet, Refills 1, Tot. 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 Hypercholesteremia Confirmed Active Insomnia Confirmed Active Insomnia Confirmed Active Mild persistent asthma, well controlled Confirmed Active Social History Social History Type Response Smoking Status Never (less than 100 in lifetime) entered on: 07/13/22 Sex Sex Representation Female (finding) Patient Care team information Care Team Personnel Name: Oneyda Alexander Position: S Associate Professional Member Role: PCP Address: [address] [place] [id number] Telecom: Care Team Related Persons Name: CRISTINA BLISS Name: BAILEY VILLARREAL Insurance Providers Guarantor name: SHARON RAYA Health Plan Information #: 1 Payer: HMO BLUE IN NETWORK Member Number: NA Policy Number: NA Group Number: [id number]
--- OUTSIDE RECORDS SUMMARY | 2024-11-23 10:23 | XMS_ITS | Patient Health Record ---
Author Organization [facility] Address [address] [facility] [address] [place] [address] Care Team Providers Care Lens Cleaner Name Role Phone Lay Tay Primary Care Provider Unavaila ble Allergies Allergen (clinical drug ingredient) Drug/Non Drug Allergy documented on EMR Reaction Allergy Type Onset Date Status morphine Morphine Sulfate Unknown Drug Allergy Active Reason For Referral No Information Medications Medication SIG (Take, Route, Frequency, Duration) Notes Start Date End Date Status Flovent HFA 110 MCG/ACT 1 puff Inhalatio n Twice a day Active traZODone HCl 50 MG 1 tablet at bedtime as needed Orally Once a day Active Albuterol Sulfate 108 (90 Base) MCG/ACT 2 puff as needed Inhalation every 4 hrs Active Plan Of Treatment Pending Test Test Name Order Date X ray : Foot, right 3v 12/10/2020 X ray : Foot, right 3v 01/07/2021 X ray : Foot, right 3v 02/19/2021 X ray : Foot, right 3v 05/06/2021 INJ TENDON SHEATH/LIGAMENT/FASCIA 2019 INJ TENDON SHEATH/LIGAMENT/FASCIA 2019 Insurance Providers Payer Name Payer Address Payer Phone Subscriber Number Group Number Insured Name Patient Relationship to Insured Coverage Start Date Coverage End Date [facility] [address] [place] [phone] [id number] Sammy Tian Self - patient is the insured Medications Administered Medication Instructions Date of Administration Dosage Notes Dexamethasone 07/10/2020 0.5 mL Dexamethasone 08/08/2020 0.5 mL Kenalog 07/10/2020 0.5 mL Kenalog 08/08/2020 0.5 mL Medical (General) History Medical History History ICD Code fibroadenoma of breast lateral epicondylitis of right elbow lumbago asthma insomnia closed fracture of lumbar vertebrae Surgical History Surgery Date(Month/Year) none
[2024-11-23] MEDS: gadobutroL 7.5 ML VIAL IVPUSH (11:21)
== END 2024-11-23 10:21 | disposition home or self-care (01) ==
LOC: HO.MRI 10:20
PROVIDERS: PCP Nurse Practitioner Family; Visit Provider Nurse Practitioner Family
DX: M54.12 Radiculopathy, cervical region (principal); R07.9 Chest pain, unspecified
CPT/HCPCS: 71552; A9585

== ENCOUNTER → 2024-11-23 10:20 | Outpatient (BNV) | payer BC, SELFPAY | PROVIDERS: PCP Nurse Practitioner Family; Visit Provider Radiology Diagnostic Radiology | DX: M47.892 Other spondylosis, cervical region (principal) | CPT/HCPCS: 71552 ==

== ENCOUNTER 2024-12-06 15:03 | Outpatient (AMB) | payer BC, SELFPAY ==
--- OUTSIDE RECORDS SUMMARY | 2024-12-06 15:09 | XMS_ITS | Patient Health Record ---
Author Organization [facility] Address [address] [facility] [address] [place] [address] Care Team Providers Care Grain Thresher Name Role Phone Lay Tay Primary Care [...] Insured Coverage Start Date Coverage End Date [facility] [address] [place] [phone] [id number] Sammy Tian Self - patient is [...]
--- NOTE | 2024-12-06 16:40 | A.OFFPC_ITS ---
Intake Visit Reasons: mri review Allergies morpine Allergy (Unknown, Uncoded 12/06/24 16:42) Hypotension Medication List - Last Reconciled 12/06/24 by Raysa Youngblood, [facility]- albuterol sulfate 90 mcg/actuation 2 puffs inhalation Q4-6H PRN 30 days albuterol-budesonide 90-80 mcg/actuation (Airsupra) 2 inhalations inhalation Q4- 6H PRN cetirizine (Zyrtec) 10 mg PO DAILY PRN cholecalciferol (vitamin D3) 50 mcg PO DAILY fluticasone propionate 50 mcg/actuation (Flonase Allergy Relief) 2 sprays intranasal DAILY hydroxyzine HCl 100 mg (2 x 50 mg) PO BEDTIME multivitamin 1 tab PO DAILY Tobacco use date assessed: 08/08/24 Dental Screening Dental Screen Date: 08/08/24 HPI HPI Comments History of Present Illness Details 53-year-old female with mild intermitten t asthma, vitamin-D deficiency, hyperlipidemia, insomnia, seasonal allergies s/p removal of cyst, L shoulder surgery 07/28/24 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 CVD Health maintenance Mammogram: UTD Pap: Follows with Dr. Zamora, left oophrectomy 2021 Bone density: 2021 years ago, normal Colonoscopy: April 2023, due in 10 years Tdap unknown last date Specialists: SENIOR ENGINEER Derm ENT Ortho Counselor Televideo visit today - pt driving; changed to voice only for safety. The patient is a 53-year-old female presenting for f/u of MRI results. The shoulder pain is chronic and reported to be alleviated by exercises. The patient abstains from lifting weights to prevent exacerbation of symptoms. Continued walking exercises have reportedly improved her condition and overall health. She underwent a stress test which returned normal, confirming the absence of significant cardiac issues. Concurrently, the patient awaits further MRI results for full evaluation. With respect to her cervical spine MRI, it was found to show degenerative corey ges consistent with cervical spine arthritis, including minor disc bulges. An incidental benign vertebral hemangioma was also identified at C4. . The patient's MRI results for her cervical spine, indicative of arthritis and minor disc bulge, have been communicated to a new physical therapist as a plan to integrate exercises into her therapeutic care. She noted that her therapist advised that there were concerns but nothing significant requiring immediate intervention. Review of Systems - Musculoskeletal: Reports improved bath room regularity and muscle pains alleviated by exercise. - Neurological: Denies new episodes of c hest pain. - Psychological: None reported. Plan - Review MRI results from [facility] and inform the patient through the portal regarding findings. - Continue with prescribed physical chemistry teacher apy exercises with the new therapist for shoulder pain management. - Pursue regular follow-up on cervical s pine arthritis, with continued exercise and monitoring for progression. - Arrange follow-up blood tests ahead of the next appointment, scheduled for end of April or early May, requiring fasting beforehand. - Monitor musculoskeletal chest pain, an d alert the patient to report any recurrence or new symptoms. Patient was informed and verbally consented to the use of an ambient scribe for clinic note documentation during this visit. Discussion Notes The patient expressed concern over delays in MRI result availability, which I acknowledged and have communicated to the mis manager for resolution. I discussed the findings of the recent cervical spine MRI, including benign hemangioma and minor disc bulge, explaining they were not immediately concerning but require monitoring. I affirmed the importance of continuing with her current physical therapy regimen to manage the shoulder pain and improve musculoskeletal health. We also reviewed the stress test outcomes, confirming there were no cardiac issues underlying the chest pain. I assured the patient I will provide results updates through the portal and recommended a follow-up blood test, ensuring fasting, to align with her next check-up in early summer. Patient Instructions - Continue prescribed exercises and foll ow guidance from the physical therapist. - Await MRI results which will be messag ed through the portal. - Schedule and attend the follow-up bloo d test, ensuring to fast before the blood draw. - Continue with current exercise regimen , incorporating regular walking. - Report any reoccurrence of chest pain immediately. - Schedule next follow-up appointment fo r late April or early May based on summer schedule. - Stay hydrated and follow healthy lifes tyle practices. *The Admin supervisor show operations of Rad was made aware of the need for read last week, Wednesday and again today. No read available as of this time. * This note is constructed using voice recognition software. While every effort has been made to ensure accuracy in light equipment operator, still errors may have been included Sometimes, these errors may affect the content or meaning of the given sentence . Total time spent caring for the patient today was 20 minutes. This includes time spent before the visit reviewing the chart, time spent during the visit, and time spent after the visit on documentation [facility] Medical History (Updated 12/06/24 @ 16:57 by [facility]) Insomnia associated with menopause Asthma Environmental and seasonal allergies Hyperlipidemia Surgical History (Updated 08/08/24 @ 17:02 by MERCY Grant) Status post shoulder surgery H/O removal of cyst Family History (Updated 04/12/24 @ 16:39 by Salma Mccoy CMA) Mother No problems noted. Father No problems noted. Paternal Grandmother Colon cancer Social History (Updated 04/12/24 @ 16:37 by Salma Mccoy CMA) Housing: House Patient Tobacco Use Status: Never used Tobacco e-Cigarette/Vaping Use: Never Used Second Hand Smoke Exposure: No service: No Current occupational exposures/hazards: No Cognitive needs: No Hearing needs: No Vision needs: No Questionnaire Thrive Questionnaire Date Thrive assessed: 10/17/24 I am a: Patient What is your living situation today?: I have a steady place to live Within the past 12 months, did the food you bought not last and you didn't have the money to get more?: Never true Within the past 12 months, did you worry whether your food would run out before you got money to buy more?: Never true Do you have trouble paying for medicines?: No Do you have trouble getting transportation to medical appointments?: No Do you have trouble paying your heating and electricity bill?: No Do you have trouble taking care of your child, family member or friend?: No Do you have trouble with day-to-day activities such as bathing, preparing meals, shopping, managing finances, etc.?: No Are you currently unemployed and looking for a job?: No Are you interested in more education?: No Please select the resources that you would like help with: None Currently or been in a relationship where the following occur: No concerns reported THRIVE Score: 0 AUDIT C Alcohol Use Questionnaire (AUDIT-C) 2. How many drinks containing alcohol do you have on a typical day when you are drinking?: 1 or 2 3. How often do you have six or more drinks on one occasion?: Never Total Score: 0 MARTÍN-7 AMB Questionnaire MARTÍN-7 Date MARTÍN - 7 assessed: 08/08/24 Source: Developed by Drs. Tanner Arredondo, Bre Stout, Camacho Healy and colleagues, with an educational jose from [employer]. Physical exam (Primary Care) Tobacco/Smoking Status: Tobacco use Status Tobacco use date assessed 08/08/24 10/17/24 10:30 Patient Tobacco Use Status Never used Tobacco 10/17/24 10:30 e-Cigarette/Vaping Use Never Used 10/17/24 10:30 Thrive Assessment: Date of Thrive Assessment Date Thrive assessed 10/17/24 11/24/24 14:21 Currently or been in a relationship where the following occur: No concerns reported Telehealth Telehealth Telehealth Platform: [email or web address] Location of provider rendering services: practice address Location of patient: other Patient Identification confirmed using: Name, : Yes Telehealth method: video Patient verbally consented to treatment: Yes Patient verbally consented to billing insurance company: Yes Patient informed of any privacy concerns related to visit: Yes Coding Level of Care Code Tele Est Pt Level 3 (15124) Complex EM visit Add On G2211 Diagnoses Cervical radicular pain M54.12 Chest wall pain R07.89 Osteoarthritis of cervical spine, unspecified spinal osteoarthritis complication status M47.812 Spinal osteoarthritis complication: unspecified spinal osteoarthritis Hemangioma of vertebral body D18.09 Assessment & Plan Assessment & Plan (1) Cervical radicular pain: Code(s): M54.12 - Radiculopathy, cervical region Category: Medical (2) Chest wall pain: Code(s): R07.89 - Other chest pain Category: Medical (3) Cervical osteoarthritis: Code(s): M47.812 - Spondylosis without myelopathy or radiculopathy, cervical region Category: Medical Qualifiers: Spinal osteoarthritis complication: unspecified spinal osteoarthritis Qualified Code(s): M47.812 - Spondylosis without myelopathy or radiculopathy, cervical region (4) Hemangioma of vertebral body: Comment: c4 noted on mri 11/17/24 Code(s): D18.09 - Hemangioma of other sites Category: Medical Plan .
== END 2024-12-06 16:53 | disposition home or self-care (01) ==
LOC: HO.HMCFM 15:03
PROVIDERS: PCP Nurse Practitioner Family; Visit Provider Nurse Practitioner Family
DX: M54.12 Radiculopathy, cervical region (principal); R07.89 Other chest pain; M47.812 Spondylosis without myelopathy or radiculopathy, cervical region; D18.09 Hemangioma of other sites

== ENCOUNTER 2025-01-22 13:45 | Outpatient (REF) | payer BC, SELFPAY ==
[2025-01-22 19:09] LABS: Influenza A PCR NEGATIVE (Negative); Influenza B PCR NEGATIVE (Negative); Resp Syncy Virus RNA Qual PCR NEGATIVE (Negative); SARS COV2 PCR INHOUSE NEGATIVE (Negative)
== END 2025-01-22 13:46 | disposition home or self-care (01) ==
LOC: HO.LAB 13:45
PROVIDERS: PCP Nurse Practitioner Family; Visit Provider Nurse Practitioner Family
DX: Z13.30 Encounter for screening examination for mental health and behavioral disorders, unspecified (principal); J06.9 Acute upper respiratory infection, unspecified; J45.909 Unspecified asthma, uncomplicated; Z91.09 Other allergy status, other than to drugs and biological substances
CPT/HCPCS: 0241U; 96160

== ENCOUNTER 2025-01-22 13:45 | Outpatient (AMB) | payer BC, SELFPAY ==
--- NOTE | 2025-01-22 13:48 | A.OFFPC_ITS ---
Vital Signs 01/22/25 13:54 Height 5 ft 4 in Weight 156 lb 8 oz BMI 26.9 BP 131/75 Blood Pressure Location Rt brachial Position Sitting Respiration 16 Pulse 65 Pulse Source Pulse Oximeter Temp 98.3 F Temp Source Oral Pulse Oximetry (%) 99 Oxygen Delivery Method Simple Mask Intake Visit Reasons: Flu & Asthma Intake Note: patient here c/o flu and asthma Shift Mechanic Required: No Is last menstrual period known: No Post menopausal: No Patient : No Allergies morpine Allergy (Unknown, Uncoded 01/22/25 14:21) Hypotension Medication List - Last Reconciled 01/22/25 by Abdulkadir Diehl CNP albuterol sulfate 90 mcg/actuation 2 puffs inhalation Q4-6H PRN 30 days albuterol-budesonide 90-80 mcg/actuation (Airsupra) 2 inhalations inhalation Q4- 6H PRN cetirizine (Zyrtec) 10 mg PO DAILY PRN cholecalciferol (vitamin D3) 50 mcg PO DAILY fluticasone propionate 50 mcg/actuation (Flonase Allergy Relief) 2 sprays intranasal DAILY hydroxyzine HCl 100 mg (2 x 50 mg) PO BEDTIME multivitamin 1 tab PO DAILY Tobacco use date assessed: 01/22/25 Dental Screening Dental Screen Date: 01/22/25 Did you have a dental visit in the last 12 months?: Yes Did you have a dental problem in the last 6 months where you did not have access to dental care?: No Was dental information given to patient?: Patient has dentist HPI HPI Comments History of Present Illness Details 54-year-old female presents with complai nts of intermittent cough that is predominantly dry with some dark-green mucous. The cough has been presents for the past 3 days. She developed fever and runny nose same day the cough started but those symptoms have resolved. The cough has been present, with ass ociated intermittent wheezing, and worst at night. She has been using her albuterol inhaler with short-term relief. She denies known sick contact. 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 She has not been taking Zyrtec. Prior to her current illness, asthma has been well controlled. [facility] Medical History (Updated 01/22/25 @ 14:41 by Abdulkadir Diehl CNP) Insomnia associated with menopause Asthma Environmental and seasonal allergies Hyperlipidemia Surgical History (Updated 08/08/24 @ 17:02 by Raysa Youngblood [facility]) Status post shoulder surgery H/O removal of cyst Family History (Updated 04/12/24 @ 16:39 by Samla Mccoy CMA) Mother No problems noted. Father No problems noted. Paternal Grandmother Colon cancer Social History (Updated 04/12/24 @ 16:37 by Salma Mccoy CMA) Housing: House Patient Tobacco Use Status: Never used Tobacco e-Cigarette/Vaping Use: Never Used Second Hand Smoke Exposure: No Patient : No service: No Current occupational exposures/hazards: No Cognitive needs: No Hearing needs: No Vision needs: No Questionnaire Thrive Questionnaire Date Thrive assessed: 01/22/25 I am a: Patient What is your living situation today?: I have a steady place to live Within the past 12 months, did the food you bought not last and you didn't have the money to get more?: Never true Within the past 12 months, did you worry whether your food would run out before you got money to buy more?: Never true Do you have trouble paying for medicines?: No Do you have trouble getting transportation to medical appointments?: No Do you have trouble paying your heating and electricity bill?: No Do you have trouble taking care of your child, family member or friend?: No Do you have trouble with day-to-day activities such as bathing, preparing meals, shopping, managing finances, etc.?: No Are you currently unemployed and looking for a job?: No Are you interested in more education?: No Please select the resources that you would like help with: None Currently or been in a relationship where the following occur: No concerns reported THRIVE Score: 0 AUDIT C Alcohol Use Questionnaire (AUDIT-C) 1. How often do you have a drink containing alcohol?: Monthly or less Total Score: 1 MARTÍN-7 AMB Questionnaire MARTÍN-7 Date MARTÍN - 7 assessed: 08/08/24 Feeling nervous, anxious, or on edge: 0 = Not at all Not being able to stop or control worryin = Not at all Worrying too much about different things: 0 = Not at all Trouble relaxin = Not at all Being so restless that it is hard to sit still: 0 = Not at all Becoming easily annoyed or irritable: 0 = Not at all Feeling afraid as if something awful might happen: 0 = Not at all Total MARTÍN-7 score (0-4 normal; 5-9 mild; 10-14 moderate; 15-21 severe): 0 Source: Developed by Drs. Tanner Arredondo, Bre Stout, Camacho Healy and colleagues, with an educational jose from [employer]. ACT Questionnaire In the past 4 weeks, how much of the time did your asthma keep you from getting as much done at work, school or at home?: A little of the time During the past 4 weeks, how often have you had shortness of breath?: Once a day During the past 4 weeks, how often did your asthma symptoms wake you up at night or earlier than usual in the morning?: Once a week During the past 4 weeks, how often have you had to use your rescue inhaler or nebulizer medication?: More than 3 times per day How would you rate your asthma control during the past 4 weeks?: Somewhat controlled ACT Interpretation: Positive Score: 13 Review of Systems Const Details: Const Denies chills, Denies fatigue, Denies fever(s), Denies headache(s) and Denies weakness ENT Denies dizziness and Denies headache(s) Card Denies chest pain, Denies lightheadedness, Denies dyspnea and Denies other (Palpitations) Resp Reports cough, Denies dyspnea, Denies wheezing and Denies other ( shortness of breath) GI Denies abdominal pain, Denies melena, Denies hematochezia, Denies change in bowel habits, Denies dyspepsia and Denies nausea Denies hematuria and Denies dysuria Musc Denies abnormal gait, Denies myalgias, Denies arthralgias, Denies numbness and Denies tingling Skin/Breast Denies rash, Denies unusual bruising and Denies wounds Neuro Denies abnormal gait, Denies dizziness, Denies headache(s), Denies memory loss, Denies numbness, Denies Sensory deficit (Neuro), Denies tingling and Denies weakness Psych Denies anxiety, Denies depression, Denies memory loss Endo Denies cold intolerance, Denies fatigue, Denies heat intolerance, Denies polydipsia and Denies polyuria Aller/Immun Denies wheezing Physical exam (Primary Care) Vital Signs: Last Vital Signs Temp 98.3 F 02/24/25 13:54 Pulse 65 01/22/25 13:54 Resp 16 01/22/25 13:54 BP 131/75 01/22/25 13:54 Pulse Ox 99 01/22/25 13:54 Oxygen Delivery Method Simple Mask 01/22/25 13:54 BMI result Body Mass Index 26.9 Tobacco/Smoking Status: Tobacco use Status Tobacco use date assessed 01/22/25 01/22/25 13:58 Patient Tobacco Use Status Never used Tobacco 01/22/25 13:50 e-Cigarette/Vaping Use Never Used 01/22/25 13:50 Thrive Assessment: Date of Thrive Assessment Date Thrive assessed 01/22/25 01/22/25 13:50 Currently or been in a relationship where the following occur: No concerns reported Const Other: General: no acute distress and well developed Nutritional Appearance: well nourished Orientation/consciousness: patient oriented x3 HENMT Head is normocephalic Bilateral ear canal and TM are normal Nasal turbinates and oropharynx are pink and moist Sinuses are nontender with palpation No auricular or cervical lymphadenopathy Eyes General: appearance normal, both eyes and all related structures Pupils: Equal, round and reactive pupils present EOM: EOMs intact bilaterally Resp Effort & Inspection: normal respiratory effort Auscultation: clear to auscultation bilaterally Cardio Rate: regular rate Rhythm: regular rhythm Heart sounds: S1 normal heart sound present, S2 normal heart sound present, no gallops, no murmurs and no rubs GI Palpation (GI): No Abdominal aortic bruit present, Soft to palpation, nontender, No hepatosplenomegaly present and No Rebound tenderness present Auscultation: normal bowel sounds General: Yes no CVA tenderness Back/Spine/Pelvis Back: no CVA tenderness Cervical Spine: cervical ROM normal and No Cervical spine tenderness Thoracic/Lumbar Spine: thoraco-lumbar ROM normal, No pain with thoraco-lumbar ROM, No thoracic spinal tenderness and No lumbar spinal tenderness Extrem General: Yes normal to inspection, No edema and No calf tenderness Skin General: warm and dry. Normal skin color. Normal skin turgor Neuro General: patient oriented x3, gait normal and no focal neuro deficit Cranial nerves: Yes Equal, round and reactive pupils present Cognition (Neuro): normal cognition Gait exam (Neuro): Normal gait present Sensory Exam: No Sensory deficit (Neuro) Psych Appearance: grossly normal Affect: normal affect Attitude: cooperative Thought process: Normal thought process present Coding Level of Care Code Est Pt Level 3 (90377) Diagnoses Viral upper respiratory illness J06.9 Additional Codes Asthma Control Questionnaire - ACT Interpretation: Positive ([id number]) Assessment & Plan Assessment & Plan (1) Viral upper respiratory illness: Code(s): J06.9 - Acute upper respiratory infection, unspecified Category: Medical Plan: Likely viral illness though possibly allergies. No exam evidence of bacterial infection Viral illness There is no antibiotic medication for viruses.? They must run their course.? Most average 5-7 days but 7-10 days is not uncommon and up to 14 days is still possible.? A cough is often the last symptom to resolve and this can last for weeks in some cases. Rest Hydrate well -? Drink plenty of fluids.? Especially water. Tylenol or ibuprofen for muscle aches, headache, fever/discomfort Benzonatate as prescribed for cough May take Zyrtec daily Continue the use albuterol inhaler as prescribed Cannot rule out COVID-19/RSV/Flu infection Nasal swab acquired and will be sent to the lab Return for new or worsening symptoms Verbalized understanding and agreed with treatment plan. Orders: Orders SARS-CoV2/FLU/RSV Today J06.9 - Acute upper respiratory infection, unspecified Medications: New benzonatate 100 mg PO BID PRN 10 caps 0RF cough
[2025-01-22 13:54] VITALS: BP 131/75; PULSE 65; RESP 16; TEMP 36.8; O2SAT 99; BMI 26.9
--- OUTSIDE RECORDS SUMMARY | 2025-01-22 15:44 | XMS_ITS | Patient Health Record ---
Author Organization [facility] Address [address] [facility] [address] [place] [address] Care Team Providers Care Fire Support Specialist Name Role Phone Lay Tay Primary Care [...] Insured Coverage Start Date Coverage End Date [facility] and [facility] [address] [place] [address] [phone] [id number] 4 Sammy Tian Self - patient is [...]
== END 2025-01-22 14:49 | disposition home or self-care (01) ==
PROVIDERS: PCP Nurse Practitioner Family; Visit Provider Nurse Practitioner Family
DX: J06.9 Acute upper respiratory infection, unspecified (principal)

== ENCOUNTER 2025-01-25 13:03 | Outpatient (AMB) | payer BC, SELFPAY ==
[2025-01-25 13:04] VITALS: BP 122/74; PULSE 76; RESP 16; TEMP 36.7; O2SAT 97; BMI 26.8
--- NOTE | 2025-01-25 13:04 | MHC.OFFWIV ---
Intake Vital Signs 01/25/25 13:04 Height 5 ft 4 in Weight 156 lb BMI 26.8 BP 122/74 Blood Pressure Location Lt brachial Position Sitting Respiration 16 Pulse 76 Pulse Source Pulse Oximeter Temp 98.1 F Temp Source Oral Pulse Oximetry (%) 97 Oxygen Delivery Method Room Air Intake Visit Reasons: EP Sinus infection? Intake Note: pt was seen in [facility], states she was neg for viral swab but still has sinus pressure and pain Patient Tobacco Use Status: Never used Tobacco Allergies morpine Allergy (Unknown, Uncoded 01/25/25 13:05) Hypotension Do you need a note to return to daycare/school/sports/work: No HPI HPI Comments History of Present Illness Details 54 y/o female patient who presents to the walk in clinic with c/o URI symptoms for 7 days now. Reports sinus pressure/congestion, and runny nose. She was seen and evaluated at [facility] 01/22, and diagnosed with Viral illness. SARs was negative then. [facility] Medical History (Updated 01/25/25 @ 13:31 by Sary Guerrier NP) Allergic rhinitis Acute respiratory disease Insomnia associated with menopause Asthma Environmental and seasonal allergies Hyperlipidemia Surgical History (Updated 08/08/24 @ 17:02 by CHUY Grant-BERTIN) Status post shoulder surgery H/O removal of cyst Family History (Updated 04/12/24 @ 16:39 by Salma Mccoy CMA) Mother No problems noted. Father No problems noted. Paternal Grandmother Colon cancer Social History (Updated 04/12/24 @ 16:37 by Salma Mccoy CMA) Housing: House Patient Tobacco Use Status: Never used Tobacco e-Cigarette/Vaping Use: Never Used Second Hand Smoke Exposure: No service: No Current occupational exposures/hazards: No Cognitive needs: No Hearing needs: No Vision needs: No Review of Systems Const All systems reviewed & are unremarkable except as noted in HPI and below Physical Exam Vital Signs: Last Vital Signs Temp 98.1 F 01/25/25 13:04 Pulse 76 01/25/25 13:04 Resp 16 01/25/25 13:04 BP 122/74 01/25/25 13:04 Pulse Ox 97 01/25/25 13:04 Oxygen Delivery Method Room Air 01/25/25 13:04 BMI result Body Mass Index 26.8 Const General: cooperative and no acute distress Orientation/consciousness: patient oriented x3 HEENT Head: Yes normocephalic Ears: external ears normal and TM abnormal with fluid behind the TM bilateral General nose exam: Abnormal mucous membranes and turbinates present boggy and erythematous Face and sinus: Yes sinuses nontender Mouth: moist mucous membranes Throat: Yes uvula midline Resp Effort & Inspection: normal respiratory effort and able to speak in complete sentences Auscultation: clear to auscultation bilaterally, no crackles, no rales, no rhonchi and no wheezes Cardio Heart sounds: S1 normal heart sound present and S2 normal heart sound present Neuro General: patient oriented x3 Assessment & Plan Assessment & Plan (1) Acute respiratory disease: Code(s): J06.9 - Acute upper respiratory infection, unspecified Plan: Advised to use Claritin BID Ordered Flonase nasal [place] (2) Allergic rhinitis: Code(s): J30.9 - Allergic rhinitis, unspecified Qualifiers: Allergic rhinitis trigger: unspecified Allergic rhinitis seasonality: seasonal Qualified Code(s): J30.2 - Other seasonal allergic rhinitis Plan: Advised to use Claritin BID Ordered Flonase nasal [place] Medications: New fluticasone propionate 50 mcg/actuation (Flonase Allergy Relief) administer into each nostril 2 sprays intranasal DAILY 16 grams 0RF J30.2 - Other seasonal allergic rhinitis Coding Level of Care Code Est Pt Level 4 (63143) Diagnoses Acute respiratory disease J06.9 Seasonal allergic rhinitis, unspecified trigger J30.2 Allergic rhinitis trigger: unspecified Allergic rhinitis seasonality: seasonal Time Spent (min) 20
--- OUTSIDE RECORDS SUMMARY | 2025-01-25 15:32 | XMS_ITS | Patient Health Record ---
Author Organization [facility] Address [address] [place] [address] Care Team Providers Care Geomorphologist Name Role Phone Lay Tay Primary Care [...] Date X ray : Foot, right 3v 05/06/2021 X ray : Foot, right 3v 02/19/2021 X ray : Foot, right 3v 01/07/2021 X ray : Foot, right 3v 12/10/2020 INJ TENDON SHEATH/LIGAMENT/FASCIA 2019 INJ TENDON SHEATH/LIGAMENT/FASCIA 2019 Insurance Providers Payer Name Payer Address Payer Phone Subscriber Number Group Number Insured Name Patient Relationship to Insured Coverage Start Date Coverage End Date [facility] and [facility] [address] [place] [id number] Sammy Tian Self - patient is [...]
== END 2025-01-25 13:40 | disposition home or self-care (01) ==
PROVIDERS: PCP Nurse Practitioner Family; Visit Provider Nurse Practitioner Family
DX: J06.9 Acute upper respiratory infection, unspecified (principal); J30.2 Other seasonal allergic rhinitis

== ENCOUNTER → 2025-01-25 13:03 | Outpatient (BNVA) | payer BC, SELFPAY | PROVIDERS: PCP Nurse Practitioner Family ==

== ENCOUNTER 2025-03-22 13:02 | Outpatient (AMB) | payer BC, SELFPAY ==
[2025-03-22 13:04] VITALS: BP 120/74; PULSE 63; BMI 26.1
--- NOTE | 2025-03-22 13:04 | MHC.OFFVIS ---
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/ [place] Intake Note: New patient dx chest pain had it twice Clinical Data Associate Required: No Allergies morpine Allergy (Unknown, Uncoded 01/25/25 13:05) Hypotension Medication List - Last Reconciled 03/22/25 by Ziyad King MD albuterol sulfate 90 mcg/actuation 2 puffs inhalation Q4-6H PRN 30 days albuterol-budesonide 90-80 mcg/actuation (Airsupra) 2 inhalations inhalation Q4-6H PRN cetirizine (Zyrtec) 10 mg PO DAILY PRN fluticasone propionate 50 mcg/actuation 2 sprays intranasal DAILY hydroxyzine HCl 100 mg (2 x 50 mg) PO BEDTIME multivitamin 1 tab PO DAILY HPI Comments Details: Thank you for referring Joshua in cardiology consultation today for management of hyperlipidemia as well as bilateral shoulder discomfort. She is a pleasant 54 year female with prior history of hyperlipidemia. She had undergone shoulder surgery few months ago. Forced surgery she did not he less well as she would. Subsequently 1 time while she was making her bed she suddenly felt discomfort from her left arm up to the shoulder going onto the other shoulder. She got really concerned about this. Symptoms lasted for about a minute and half. Following that she had 1 more episode of similar symptoms a week later. She subsequently underwent a stress test few months ago which was normal at high workload. Since then she has been exercising and has been doing regular running. She ran 5 miles today. No exertional symptoms. No exertional chest pain or bilateral shoulder discomfort. She was referred here for further management of that atypical bilateral shoulder discomfort. She also has hyperlipidemia. Says that her grandfather on father's side had cardiovascular issue in his 60s. Her mother in his 60s of unclear reason. No other strong premature coronary artery disease in the family noted. [facility], [facility] Medical History Allergic rhinitis Acute respiratory disease Insomnia associated with menopause Asthma Environmental and seasonal allergies Hyperlipidemia Surgical History Status post shoulder surgery H/O removal of cyst Family History Mother No problems noted. Father No problems noted. Paternal Grandmother Colon cancer Social History Housing: House Patient Tobacco Use Status: Never used Tobacco e-Cigarette/Vaping Use: Never Used Second Hand Smoke Exposure: No service: No Current occupational exposures/hazards: No Cognitive needs: No Hearing needs: No Vision needs: No Review of Systems Const Denies chills, Denies daytime sleepiness, Denies fatigue, Denies fever(s), Denies frequent falls, Denies poor appetite, Denies snoring, Denies stops breathing during sleep, Denies weakness, Denies weight gain and Denies weight loss Eyes Denies loss of vision ENT Denies dizziness and Denies hearing loss Card Denies chest pain, Denies claudication, Denies leg edema, Denies lightheadedness, Denies palpitations, Denies dyspnea, Denies dyspnea on exertion and Denies orthopnea Resp Denies cough, Denies excessive phlegm production, Denies dyspnea, Denies dyspnea on exertion, Denies snoring and Denies wheezing GI Denies abdominal pain, Denies hematochezia, Denies change in bowel habits, Denies nausea and Denies vomiting Denies urinary frequency and Denies dysuria Musc Denies arthralgias, Denies muscle weakness, Denies numbness and Denies other (frequent falls) Skin/Breast Denies nail changes and Denies rash Neuro Denies Abnormal speech present, Denies dizziness, Denies frequent falls, Denies loss of vision, Denies memory loss, Denies numbness and Denies weakness Psych Denies depression and Denies memory loss Endo Denies fatigue and Denies palpitations Brett/Lymph Reports easy bruising and Reports other (anemia) Aller/Immun Denies wheezing Physical Exam Vital Signs: Last Vital Signs Pulse 63 03/22/25 13:04 BP 120/74 03/22/25 13:04 BMI result Body Mass Index 26.1 Const General: cooperative, comfortable, no acute distress, alert, awake, Physically active and well groomed Nutritional Appearance: thin Orientation/consciousness: patient oriented x3 Limitations: no limitations HEENT Head: Yes normocephalic and Yes atraumatic Neck Neck: Yes trachea midline, Yes supple and Yes no JVD Resp Effort & Inspection: normal respiratory effort Auscultation: clear to auscultation bilaterally Cardio Jugular venous distension: no JVD Palpation: normal PMI Rate: regular rate Rhythm: regular rhythm Heart sounds: S1 normal heart sound present, S2 normal heart sound present, no click, no gallops, no murmurs and no rubs GI Auscultation: normal bowel sounds Skin General skin exam: no rashes or lesions noted Neuro General: patient oriented x3 and no focal motor deficits Speech: No Abnormal speech present Extrem General: Yes no clubbing, cyanosis or edema Psych Appearance: grossly normal Office Procedures EKG Details: EKG shows normal sinus rhythm with rightward axis otherwise normal EKG [id number], Complete Assessment & Plan Assessment & Plan (1) Hyperlipidemia: Code(s): E78.5 - Hyperlipidemia, unspecified Category: Medical Qualifiers: Hyperlipidemia type: pure hypercholesterolemia Qualified Code(s): E78.00 - Pure hypercholesterolemia, unspecified Plan: Hyperlipidemia in this middle-aged woman with somewhat unclear family history with atypical/noncardiac bilateral shoulder discomfort. She underwent a stress test after that which showed no evidence of ischemia at high workload. Patient was subsequently continues to perform high workload without any symptoms. She was no evidence of obstructive coronary disease. We discussed about management of hyperlipidemia and I would like to further screen for presence of coronary atherosclerosis with a coronary calcium score. This was discussed with her. Benefit of this was discussed including further risk stratification with test finding and treatment options if she has presence of coronary atherosclerosis. Will also suggest her to undergo other lipid markers such as lipoprotein a and apolipoprotein B. Also suggest inflammatory markers with high sensitivity C-reactive protein. Further treatment with statins or other medications based on the findings of these test results. This was discussed with her. She had understands and agreeable and wants to pursue these testing. Will follow up in the clinic if need be. Thank you for allowing me to partake in his care Orders: Orders CT Coronary Calcium Score 1 Week E78.00 - Pure hypercholesterolemia, unspecified CRP High Sensitivity Today E78.00 - Pure hypercholesterolemia, unspecified, E78.5 - Hyperlipidemia, unspecified Lipoprotein A Today E78.00 - Pure hypercholesterolemia, unspecified Apolipoprotein B Today E78.00 - Pure hypercholesterolemia, unspecified Coding Level of Care Code New Pt Level 4 (13775) Complex EM visit Add On G2211 Diagnoses Pure hypercholesterolemia E78.00 Hyperlipidemia type: pure hypercholesterolemia CPT Codes EKG - CPT: 82047-[id number], Complete ([id number])
--- OUTSIDE RECORDS SUMMARY | 2025-03-22 15:21 | XMS_ITS ---
Author Name [facility] Organization Unknown History of Medication Use Medication Directions Dispensed Refills Start Date End Date Stat us dextromethorphan HBr (SCOT-TUSSIN DIABETES CF) 10 mg/5 mL liqd Take 20 mg by mouth every 6 (six) hours as needed (cough) for up to 7 days Do not exceed 4 doses per day. 02/16/2025 active guaiFENesin (MUCINEX) 600 mg Ta12 Take 600-1,200 mg by mouth 2 (two) times a day as needed (Cough) for up to 7 days Max dose 2,400mg per day. 02/16/2025 active sodium chloride (OCEAN) 0.65 % nasal spray Instill 1 spray into each nostril as needed for congestion 02/16/2025 active hydrOXYzine (ATARAX) 50 MG tablet TAKE 2 TABLETS BY MOUTH AT BEDTIME 12/15/2024 active loratadine (CLARITIN) 10 mg tablet Take 1 tablet (10 mg total) by mouth 11/26/2023 active fluticasone propionate (Flovent HFA) 110 mcg/actuation inhaler Inhale 07/13/2022 act mayra Problems Problem Status Onset Date Problem Type Date of Resolution Source Lab test positive for detection of COVID-19 virus active EncounterDiagnosisAct CT_C [facility] Sore throat active EncounterDiagnosisAct CT_[facility] Encounters Encounter Type Encounter Reason Primary Diagnosis Location Date Ambulatory Mouth or throat complaint COVID-[address] [facility] 02/16/2025 Care Team Organization Name Specialty Phone Email Start Date End Da te [facility] NO PCP Primary Care 02/16
--- OUTSIDE RECORDS SUMMARY | 2025-03-22 15:21 | XMS_ITS | Patient Health Record ---
Author Organization [facility] Address [address] [place] [address] Care Team Providers Care Lockstitch Binder Name Role Phone Lay Tay Primary Care [...] Insured Coverage Start Date Coverage End Date [facility] [address] [place] [address] [phone] [id number] 4 Sammy Tian Self - patient is [...]
== END 2025-03-22 13:52 | disposition home or self-care (01) ==
LOC: HO.HCS 13:02
PROVIDERS: PCP Nurse Practitioner Family; Visit Provider Internal Medicine Cardiovascular Disease
DX: E78.00 Pure hypercholesterolemia, unspecified (principal)
CPT/HCPCS: 93010; 99204

== ENCOUNTER → 2025-03-22 13:02 | Outpatient (BNVA) | payer BC, SELFPAY | PROVIDERS: PCP Nurse Practitioner Family; Visit Provider Internal Medicine Cardiovascular Disease | DX: E78.5 Hyperlipidemia, unspecified (principal); M25.511 Pain in right shoulder; M25.512 Pain in left shoulder | CPT/HCPCS: 93005 ==

== ENCOUNTER 2025-03-30 07:03 | Outpatient (AMB) | payer BC, SELFPAY ==
--- NOTE | 2025-03-30 07:03 | A.OFFPC_ITS ---
Vital Signs 03/30/25 07:05 Height 5 ft 4 in Weight 149 lb 2 oz BMI 25.6 BP 132/72 Blood Pressure Location Lt brachial Position Sitting Respiration 12 Pulse 66 Pulse Source Pulse Oximeter Temp 97.2 F Temp Source Oral Pulse Oximetry (%) 98 Oxygen Delivery Method Room Air Intake Visit Reasons: follow up on menopause Intake Note: Follow up menopause Salvage Diver Required: No Allergies morpine Allergy (Unknown, Uncoded 03/30/25 07:12) Hypotension Medication List - Last Reconciled 03/30/25 by Raysa Youngblood, [facility]- albuterol sulfate 90 mcg/actuation 2 puffs inhalation Q4-6H PRN 30 days albuterol-budesonide 90-80 mcg/actuation (Airsupra) 2 inhalations inhalation Q4- 6H PRN cetirizine (Zyrtec) 10 mg PO DAILY PRN fluticasone propionate 50 mcg/actuation 2 sprays intranasal DAILY hydroxyzine HCl 100 mg (2 x 50 mg) PO BEDTIME multivitamin 1 tab PO DAILY Tobacco use date assessed: 03/30/25 Dental Screening Dental Screen Date: 03/30/25 Did you have a dental visit in the last 12 months?: Yes Did you have a dental problem in the last 6 months where you did not have access to dental care?: No Was dental information given to patient?: Patient has dentist HPI HPI Comments History of Present Illness Details 54-year-old female with mild intermitten t asthma, vitamin-D deficiency, hyperlipidemia, insomnia, seasonal allergies, menopause s/p removal of cyst, L shoulder surgery 07/28/24 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 CVD Health maintenance Mammogram: UTD Pap: Follows with Dr. Zamora, left oophrectomy 2021 Bone density: 2021 years ago, normal Colonoscopy: April 2023, due in 10 years Tdap unknown last date Specialists: HAND CANDY DIPPER Derm ENT Ortho Counselor History of Present Illness - The patient is a 54-year-old female pr esenting for fu with hx episodic chest pain and menopause management. - She had episodic chest pain with previ ous evaluations showing a normal stress test, and she is awaiting further investigation with apolipoproteins and coronary calcium score. Labs will be done today; CT scan done next week @ [facility]. - The patient underwent L shoulder surge ry and attributes surrounding symptoms and recovery difficulties to that procedure. - She has had menopausal symptoms follow ing the removal of a L ovary and fallopian tube approximately three years ago. Wonders about estogren. - There is a concern regarding hyperlipi demia, despite a healthy lifestyle and suspected familial hypercholesterolemia, given her mother's history. - Presents with constipation potentially related to hydroxyzine 100 mg. Laxative use required for alleviation. - Takes multiple supplements: b12, zinc, mvi, mag, vit d, vit c & will start omega Physical Exam General: Well developed, well nourished, in no acute distress. Appears stated age. Head: Normocephalic, atraumatic. Eyes: Conjunctivae are clear. Lungs: Speaking in full sentences Psych: Mood and affect appropriate, though patient reports feeling tired and stressed due to personal circumstances. Results 07/2024 TC/HDL ratio 3 Pending Discussion Notes I discussed with the patient her presenting issues, which include episodic chest pain, menopausal concerns, and hyperlipidemia. We reviewed the cardiology consultation and current pending tests. I highlighted the importance of the a polipoprotein results, which could identify familial cholesterolemia contributing to her hyperlipidemia. We discussed addressing menopausal symptoms, and I suggested an evaluation by a specialist in menopause management. We discussed alternatives and agreed upon the next steps for her current concerns. I provided guidance on managing her constipation with continued laxative use and emphasizing dietary fiber. recommend maintaining regular physical activity and considering consultation for hormonal evaluation and management. Assessment and Plan 1. Episodic Chest Pain Pending further assessment via cardiology lab tests, I advise waiting for apolipoprotein results. 2. Menopausal Symptoms Recommend evaluation by a [facility] menopause specialist for potentially starting hormone therapy due to significant menopausal symptoms post-surgery. 3. Hyperlipidemia Recommend healthy diet and exercise continuation. Await lab results for apolipoprotein for further management. Patient Instructions - Follow up on lab results and complete pending tests. - Consult with recommended menopause spe cialist. - Use MiraLAX regularly to manage consti pation. - Continue physical therapy and exercise as tolerated. - Maintain a heart-healthy diet and exer cise routine. - Stop b12 - Stop Zinc - use sparingly. -RTO Sept CPE Consent Patient was informed and verbally consented to the use of an ambient scribe for clinic note documentation during this visit. Total time spent caring for the patient today was 40 minutes. This includes time spent before the visit reviewing the chart, time spent during the visit, and time spent after the visit on documentation, reviewing laboratory results, diagnostic imaging, medications, performing a medically necessary evaluation, counseling on diagnoses, care coordination, ordering appropriate tests, ordering appropriate medications, review of tests performed by other providers, reporting test results with the patient, communication with other healthcare providers. [facility] Medical History (Updated 03/30/25 @ 07:[address] [facility]) Acute respiratory disease Allergic rhinitis Asthma Environmental and seasonal allergies Hyperlipidemia Insomnia associated with menopause Surgical History H/O removal of cyst Status post shoulder surgery Family History Mother No problems noted. Father No problems noted. Paternal Grandmother Colon cancer Social History Housing: House Patient Tobacco Use Status: Never used Tobacco e-Cigarette/Vaping Use: Never Used Second Hand Smoke Exposure: No service: No Current occupational exposures/hazards: No Cognitive needs: No Hearing needs: No Vision needs: No Questionnaire PHQ-9 Over the last 2 weeks, how often have you been bothered by any of the following problems? 1. Little interest or pleasure in doing things: not at all 2. Feeling down, depressed, or hopeless: not at all 3. Trouble falling or staying asleep, or sleeping too much: not at all 4. Feeling tired or having little energy: not at all 5. Poor appetite or overeating: not at all 6. Feeling bad about yourself - or that you are a failure or have let yourself or your family down: not at all 7. Trouble concentrating on things, such as reading the newspaper or watching television: not at all 8. Moving or speaking so slowly that other people could have noticed. Or the opposite - being so fidgety or restless that you have been moving around a lot more than usual: not at all 9. Thoughts that you would be better off or of hurting yourself in some way: not at all Total score: 0 Depression Screening Interpretation: Negative Depression Screening Done: Yes 67327 - PHQ-9 Billing: Yes Source: Developed by Drs. Tanner Arredondo, Bre Stout, Camacho Healy and colleagues, with an educational jose from [employer]. Thrive Questionnaire Date Thrive assessed: 03/30/25 I am a: Patient What is your living situation today?: I have a steady place to live Within the past 12 months, did the food you bought not last and you didn't have the money to get more?: Never true Within the past 12 months, did you worry whether your food would run out before you got money to buy more?: Never true Do you have trouble paying for medicines?: No Do you have trouble getting transportation to medical appointments?: No Do you have trouble paying your heating and electricity bill?: No Do you have trouble taking care of your child, family member or friend?: No Do you have trouble with day-to-day activities such as bathing, preparing meals, shopping, managing finances, etc.?: No Are you currently unemployed and looking for a job?: No Are you interested in more education?: No THRIVE Score: 0 AUDIT C Alcohol Use Questionnaire (AUDIT-C) 1. How often do you have a drink containing alcohol?: Never 3. How often do you have six or more drinks on one occasion?: Never Total Score: 0 Score Reviewed/Action Taken: Yes MARTÍN-7 AMB Questionnaire MARTÍN-7 Date MARTÍN - 7 assessed: 03/30/25 Feeling nervous, anxious, or on edge: 0 = Not at all Not being able to stop or control worryin = Not at all Worrying too much about different things: 0 = Not at all Trouble relaxin = Not at all Being so restless that it is hard to sit still: 0 = Not at all Becoming easily annoyed or irritable: 0 = Not at all Feeling afraid as if something awful might happen: 0 = Not at all Total MARTÍN-7 score (0-4 normal; 5-9 mild; 10-14 moderate; 15-21 severe): 0 Source: Developed by Drs. Tanner Arredondo, Camacho Yanez and colleagues, with an educational jose from [employer]. MARTÍN-7 Assessment Billing MARTÍN-7 Assessment Tool: MARTÍN-7 Assessment 23849 Physical exam (Primary Care) Tobacco/Smoking Status: Tobacco use Status Tobacco use date assessed 01/22/25 01/22/25 13:58 Patient Tobacco Use Status Never used Tobacco 01/25/25 13:05 e-Cigarette/Vaping Use Never Used 01/22/25 13:50 Depression Screening Interpretation: Negative Thrive Assessment: Date of Thrive Assessment Date Thrive assessed 01/22/25 03/15/25 12:11 Coding Level of Care Code Est Pt Level 5 (22235) Complex EM visit Add On G2211 Diagnoses Menopause Z78.0 Pure hypercholesterolemia E78.00 Hyperlipidemia type: pure hypercholesterolemia Chest pain, unspecified type R07.9 Chest pain type: unspecified Encounter for medication counseling Z71.89 Additional Codes MARTÍN-7 Assessment Billing - MARTÍN-7 Assessment Tool: MARTÍN-7 Assessment 78930 ([id number]) PHQ-9 - 79526 - PHQ-9 Billing: Yes ([id number]) Assessment & Plan Assessment & Plan (1) Menopause: Code(s): Z78.0 - Asymptomatic menopausal state Category: Medical (2) Hyperlipidemia: Code(s): E78.5 - Hyperlipidemia, unspecified Category: Medical Qualifiers: Hyperlipidemia type: pure hypercholesterolemia Qualified Code(s): E78.00 - Pure hypercholesterolemia, unspecified (3) Chest pain: Code(s): R07.9 - Chest pain, unspecified Category: Medical Qualifiers: Chest pain type: unspecified Qualified Code(s): R07.9 - Chest pain, unspecified (4) Encounter for medication counseling: Code(s): Z71.89 - Other specified counseling Plan . Orders: Referrals CREW TEAM MEMBER Referral Z78.0 - Asymptomatic menopausal state Patient Instructions: Ina Park CNM at [facility] Patient Instructions - Follow up on lab results and complete pending tests. - Consult with recommended menopause specialist. - Use MiraLAX regularly to manage constipation. - Continue physical therapy and exercise as tolerated. - Maintain a heart-healthy diet and exercise routine. - Stop b12 - Stop Zinc - use sparingly. -RTO Jul CPE
[2025-03-30 07:05] VITALS: BP 132/72; PULSE 66; RESP 12; TEMP 36.2; O2SAT 98; BMI 25.6
--- OUTSIDE RECORDS SUMMARY | 2025-03-30 07:05 | XMS_ITS | Patient Health Record ---
Author Organization [facility] Address [address] [place] [address] Care Team Providers Care Airbrush Painter Name Role Phone Lay Tay Primary Care [...] Insured Coverage Start Date Coverage End Date [facility] [address] [place] [id number] Sammy Tian Self - patient is [...]
== END 2025-03-31 17:28 | disposition home or self-care (01) ==
LOC: HO.HMCFM 07:04
PROVIDERS: PCP Nurse Practitioner Family; Visit Provider Nurse Practitioner Family
DX: R07.9 Chest pain, unspecified (principal); Z78.0 Asymptomatic menopausal state; E78.00 Pure hypercholesterolemia, unspecified; Z71.89 Other specified counseling

== ENCOUNTER → 2025-03-30 07:03 | Outpatient (BNVA) | payer BC, SELFPAY | PROVIDERS: PCP Nurse Practitioner Family; Visit Provider Nurse Practitioner Family | DX: R07.9 Chest pain, unspecified (principal); E78.00 Pure hypercholesterolemia, unspecified; Z78.0 Asymptomatic menopausal state; Z71.89 Other specified counseling | CPT/HCPCS: 96127 ==

== ENCOUNTER 2025-03-30 07:38 | Outpatient (REF) | payer BC, SELFPAY ==
[2025-03-30 11:19] LABS: Hemoglobin 13.2 g/dl (12.0-16.0); Mean Corpuscular Hemoglobin 29.8 pg (27.0-33.0); Mean Corpuscular Volume 90.3 fL (80.0-98.0); Mean Platelet Volume 10.9 fL (9.4-12.3); Platelet Count 256 X10*3/uL (160-400); Red Blood Count 4.43 X10*6/uL (4.20-5.50); Red Cell Distribution Width 12.8 % (11.0-16.0); White Blood Count 4.5 X10*3/uL (4.8-10.8)
[2025-03-30 11:49] LABS: Alanine Aminotransferase 48 U/L (0-31); Albumin Level 4.5 g/dL (3.5-5.0); Alkaline Phosphatase 60 U/L (39-117); Anion Gap 12 (12-20); Aspartate Amino Transferase 48 U/L (5-31); Bilirubin Total 0.7 mg/dL (0.0-1.0); Blood Urea Nitrogen 16 mg/dL (9-16); Calcium 9.8 mg/dL (8.4-10.2); Carbon Dioxide 29 mmol/L (22-29); Chloride 100 mmol/L (96-108); Cholesterol 243 mg/dL (<200); Estimated Glomerular Filt Rate > 60; Glucose Fasting 79 mg/dL (60-99); HDL Cholesterol 93 mg/dL (>40); LDL Cholesterol Calculated 140 mg/dL (<100); Sodium 137 mmol/L (135-145); Total Protein 7.5 g/dL (6.5-8.0); Triglycerides 50 mg/dL (<150)
[2025-03-30 12:10] LABS: TSH reflex Free T4 2.55 uIU/mL (0.32-4.0)
[2025-04-02 18:58] LABS: CRP High Sensitivity 0.4 mg/L
[2025-04-03 21:34] LABS: Apolipoprotein B 94 mg/dL (<90)
[2025-04-04 08:57] LABS: Lipoprotein A 29 nmol/L (<75)
== END 2025-03-30 07:39 | disposition home or self-care (01) ==
LOC: HO.WFDLDS 07:38
PROVIDERS: Referring Provider Internal Medicine Cardiovascular Disease; Visit Provider Nurse Practitioner Family
DX: Z00.00 Encounter for general adult medical examination without abnormal findings (principal); E78.00 Pure hypercholesterolemia, unspecified; E78.5 Hyperlipidemia, unspecified
CPT/HCPCS: 36415; 80053; 80061; 82172; 83695; 84443; 85027; 86141

== ENCOUNTER 2025-04-18 14:20 | Outpatient (AMB) | payer BC, SELFPAY ==
--- NOTE | 2025-04-18 14:35 | MHC.PC.OV ---
Intake Visit Reasons: heart issues Intake Note: Telehealth Patient c/o heart issues and menopause. Long Line Teamster Required: No Allergies morpine Allergy (Unknown, Uncoded 04/18/25 16:39) Hypotension Medication List - Last Reconciled 04/18/25 by Raysa Youngblood, [facility]- albuterol sulfate 90 mcg/actuation 2 puffs inhalation Q4-6H PRN 30 days albuterol-budesonide 90-80 mcg/actuation (Airsupra) 2 inhalations inhalation Q4-6H PRN cetirizine (Zyrtec) 10 mg PO DAILY PRN fluticasone propionate 50 mcg/actuation 2 sprays intranasal DAILY hydroxyzine HCl 100 mg (2 x 50 mg) PO BEDTIME multivitamin 1 tab PO DAILY trazodone 50 mg PO BEDTIME PRN Tobacco use date assessed: 03/30/25 Dental Screening Dental Screen Date: 03/30/25 HPI HPI Comments History of Present Illness Details 54-year-old female with mild intermittent asthma, vitamin-D deficiency, hyperlipidemia, insomnia, seasonal allergies, menopause s/p removal of cyst, L shoulder surgery 07/28/24 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 CVD Health maintenance Mammogram: UTD Pap: Follows with Dr. Zamora, left oophrectomy 2021 Bone density: 2021 years ago, normal Colonoscopy: April 2023, due in 10 years Tdap unknown last date Specialists: PHOTO FINISH PHOTOGRAPHER first appt with adilson welsh 07/10/25 Derm ENT Ortho Counselor History of Present Illness - The patient is a 54-year-old female presenting with concerns about hyperlipidemia management and cholesterol. - Calcium score was zero; apolipoprotein B level slightly elevated at 94. - Family history not directly indicative of her cholesterol issues; father healthy, mother was obese. - Frustration due to difficulties managing weight post-oophorectomy (2022). - Menopause-related symptoms including insomnia; medications like trazodone 50mg ineffective. Now using hydroxyzine 100mg; still waking at HS and taking melatonin. Lots of life stressors, wonders if playing a role in insomnia Has visit w/ Adilson Welsh for menopause taking miralax for constipation elevated lfts, no abd pain. was taking nsaids. repeat due middle of april Assessment and Plan 1. Hyperlipidemia - Elevated apolipoprotein B discussed; recommended citrus bergamot 1000 mg/day. - Lipid profile retest planned for July 2. Menopausal Syndrome - Consider hormone replacement therapy; plan discussion with Adilson Welsh. 3. Insomnia - Retry trazodone at incrementally higher doses. Rec 50-150mg QHS, take daily to see if this helps w/ insomnia and mood. - Hydroxyzine continues to be an option. 4. Elevated Liver Enzymes - Plan repeat liver function test in April RTO 07/2025 for CPE as scheduled, labs 1 week before sooner PRN Telehealth Attestation The visit was conducted via telephone and accurately reflects the patient's health status and care plan discussed during the consultation. The patient has been explained that this is an interactive (audio/video) telehealth encounter and what that consists of. The patient understands and wishes to proceed. [employer] platform was used. Total time spent caring for the patient today was 50 minutes. This includes time spent before the visit reviewing the chart, time spent during the visit, and time spent after the visit on documentation, reviewing laboratory results, diagnostic imaging, medications, performing a medically necessary evaluation, counseling on diagnoses, care coordination, ordering appropriate tests, ordering appropriate medications, review of tests performed by other providers, reporting test results with the patient, communication with other healthcare providers. [facility] Medical History (Updated 04/18/25 @ 17:09 by Raysa Youngblood, [facility]) Acute respiratory disease Allergic rhinitis Asthma Environmental and seasonal allergies Hyperlipidemia Insomnia associated with menopause Surgical History H/O removal of cyst Status post shoulder surgery Family History Mother No problems noted. Father No problems noted. Paternal Grandmother Colon cancer Social History Housing: House Patient Tobacco Use Status: Never used Tobacco e-Cigarette/Vaping Use: Never Used Second Hand Smoke Exposure: No service: No Current occupational exposures/hazards: No Cognitive needs: No Hearing needs: No Vision needs: No Questionnaire Thrive Questionnaire Date Thrive assessed: 01/22/25 I am a: Patient What is your living situation today?: I have a steady place to live Within the past 12 months, did the food you bought not last and you didn't have the money to get more?: Never true Within the past 12 months, did you worry whether your food would run out before you got money to buy more?: Never true Do you have trouble paying for medicines?: No Do you have trouble getting transportation to medical appointments?: No Do you have trouble paying your heating and electricity bill?: No Do you have trouble taking care of your child, family member or friend?: No Do you have trouble with day-to-day activities such as bathing, preparing meals, shopping, managing finances, etc.?: No Are you currently unemployed and looking for a job?: No Are you interested in more education?: No Please select the resources that you would like help with: None Currently or been in a relationship where the following occur: No concerns reported THRIVE Score: 0 MARTÍN-7 AMB Questionnaire MARTÍN-7 Date MARTÍN - 7 assessed: 03/30/25 Source: Developed by Drs. Tanner Arredondo, Bre Stout, Camacho Healy and colleagues, with an educational jose from [employer]. Physical exam (Primary Care) Tobacco/Smoking Status: Tobacco use Status Tobacco use date assessed 03/30/25 04/18/25 14:37 Patient Tobacco Use Status Never used Tobacco 04/18/25 14:37 e-Cigarette/Vaping Use Never Used 04/18/25 14:37 Thrive Assessment: Date of Thrive Assessment Date Thrive assessed 01/22/25 04/18/25 14:37 Currently or been in a relationship where the following occur: No concerns reported Telehealth Telehealth Telehealth Platform: [facility] Location of provider rendering services: practice address Location of patient: address on file Patient Identification confirmed using: Name, : Yes Telehealth method: voice only Patient verbally consented to treatment: Yes Patient verbally consented to billing insurance company: Yes Patient informed of any privacy concerns related to visit: Yes Minutes spent on Phone/Video with Pt.: 37 Results Reviewed Results Reviewed: Test Result Flag Reference Sodium 137 135-145 mmol/L Potassium 4.0 3.3-5.1 mmol/L CL 100 96-108 mmol/L CO2 29 22-29 mmol/L Gap 12 12-20 BUN 16 9-16 mg/dL Creat 0.77 0.5-1.4 mg/dL eGFR > 60 Chronic Kidney Disease: Estimated GFR < 60 mL/min/1.73m2 Severe Kidney Disease: Estimated GFR < 15 mL/min/1.73m2 FBS 79 60-99 mg/dL CA 9.8 8.4-10.2 mg/dL Total Bili 0.7 0.0-1.0 mg/dL AST (GOT) 48 H 5-31 U/L ALT (GPT) 48 H 0-31 U/L Protein, Total 7.5 6.5-8.0 g/dL Alb 4.5 3.5-5.0 g/dL Triglyceride 50 <150 mg/dL Desirable Triglyceride: less than 150 mg/dL Borderline High Triglyceride 150-199 mg/dL High Triglyceride: 200-499 mg/dL Very High Triglyceride: greater than or equal to 5OO mg/dL Cholesterol 243 H <200 mg/dL Desirable Cholesterol: less than 200 mg/dL Borderline High Cholesterol: 200-239 mg/dL High Cholesterol: greater than 239 mg/dL LDL Calculated 140 H <100 mg/dL Desirable LDL: less than 100 mg/dL Near Optimal/Above Optimal LDL: 110-129 mg/dL Borderline High LDL: 130-159 mg/dL High LDL: 160-189 mg/dL Very High LDL: greater than or equal to 190 mg/dL HDL 93 >40 mg/dL Desirable HDL: greater than 40 mg/dL Note: This HDL assay may give artificially low results in patients with liver disease. Alk Phos 60 39-117 U/L TSH 2.55 0.32-4.0 uIU/mL Coding Level of Care Code Tele Est Pt Level 5 (85214) Complex EM visit Add On G2211 Diagnoses Pure hypercholesterolemia E78.00 Hyperlipidemia type: pure hypercholesterolemia Elevated liver enzymes R74.8 Insomnia associated with menopause N95.1 Menopause Z78.0 Slow transit constipation K59.01 Constipation type: slow transit constipation Assessment & Plan Assessment & Plan (1) Hyperlipidemia: Code(s): E78.5 - Hyperlipidemia, unspecified Category: Medical Qualifiers: Hyperlipidemia type: pure hypercholesterolemia Qualified Code(s): E78.00 - Pure hypercholesterolemia, unspecified (2) Elevated liver enzymes: Code(s): R74.8 - Abnormal levels of other serum enzymes Category: Medical (3) Insomnia associated with menopause: Code(s): N95.1 - Menopausal and female climacteric states Category: Medical (4) Menopause: Code(s): Z78.0 - Asymptomatic menopausal state Category: Medical (5) Constipation: Code(s): K59.00 - Constipation, unspecified Category: Medical Qualifiers: Constipation type: slow transit constipation Qualified Code(s): K59.01 - Slow transit constipation Plan . Orders: Orders Hemoglobin A1c 4 Months E78.00 - Pure hypercholesterolemia, unspecified, R74.8 - Abnormal levels of other serum enzymes, Z00.00 - Encounter for general adult medical examination without abnormal findings Vitamin B12 and Folate 4 Months E78.00 - Pure hypercholesterolemia, unspecified, R74.8 - Abnormal levels of other serum enzymes, Z00.00 - Encounter for general adult medical examination without abnormal findings Vitamin D 25-OH Total 4 Months E78.00 - Pure hypercholesterolemia, unspecified, R74.8 - Abnormal levels of other serum enzymes, Z00.00 - Encounter for general adult medical examination without abnormal findings Lipid Panel 4 Months E78.00 - Pure hypercholesterolemia, unspecified Comprehensive Met. Panel Today E78.00 - Pure hypercholesterolemia, unspecified, R74.8 - Abnormal levels of other serum enzymes, Z00.00 - Encounter for general adult medical examination without abnormal findings Microalbumin, Random (w Creat) 4 Months E78.00 - Pure hypercholesterolemia, unspecified, R74.8 - Abnormal levels of other serum enzymes, Z00.00 - Encounter for general adult medical examination without abnormal findings TSH reflex Free T4 4 Months E78.00 - Pure hypercholesterolemia, unspecified, R74.8 - Abnormal levels of other serum enzymes, Z00.00 - Encounter for general adult medical examination without abnormal findings Medications: Refilled trazodone 50 mg PO BEDTIME PRN 30 tabs 1RF sleep Discontinued trazodone Discontinued Reason: Patient no longer taking 50 mg PO BEDTIME PRN 30 tabs 1RF sleep
--- OUTSIDE RECORDS SUMMARY | 2025-04-18 14:40 | XMS_ITS | Continuity of Care Document ---
Author Organization [facility] Address [address] [place] [address]- Care Team Providers Care Gear Generator Set Up Operator Name Role Phone Oneyda Alexander Primary Care Physician Encounter 04/06/25 - 04/13/25 [facility] [address], [address] [place] [address]- Attending Physician: Ziyad King MD Admitting Physician: Ziyad King MD Referring Physician: Ziyad King MD Encounter Type: OutPatient One Time Allergies, Adverse Reactions, Alerts Substance Criticality Severity Reaction Reaction Severity Status morphine Active Immunizations Given and Recorded Vaccine Date Status Refusal Reason SARS-CoV-2 mRNA (tozinameran 6m-4y) vacc 03/06/22 Recorded SARS-CoV-2 (COVID-19) mRNA [...] 1 Refills, Maintenance, 11/26/23 10:59:00 AM EST, [facility]/pharmacy #[id number], Partial fill upon patient request if [...] 9:05:00 AM EST, Route to Pharmacy Electronically, [facility]/pharmacy #[id number], Partial fill upon patient request if [...] Refills, Maintenance, 07/13/22 2:50:00 PM EDT, Aerosol, [facility]/pharmacy #[id number], Partial fill upon patient request if [...] Maintenance, 12/06/22 5:00:00 PM EST, REC Powder, [facility]/pharmacy #[id number], test date 12/07/22, 240 mL By [...] 9:04:00 AM EST, Route to Pharmacy Electronically, [facility]/pharmacy #[id number], Partial fill upon patient request if [...] Mild persistent asthma, well controlled Confirmed Active Results Radiology Reports * Exam Date Time Procedure Performing Provider Status 04/06/25 5:[address] Heart W/O Dye Delvin Gladysal Elizabeth Oden; Auth (Verified) Notes: (CT Heart W/O Dye Delvin Eval) Reason For Exam: E78.00 PURE HYPERCHOLESTEROLEMIA RESULT: CT Heart W/O Dye Delvin Eval CT Heart W/O Dye Delvin Eval INDICATION: Reason: E78.00 PURE HYPERCHOLESTEROLEMIA; Clinical Question(s): Other:. Female of age 54 , race Unknown COMPARISON: None TECHNIQUE: Coronary artery Calcium Scoring. After a localizing caustic mixer image was obtained, an ECG-gated noncontrast exam was obtained of the heart in late diastole. The region of interest was limited to the heart in order to optimize image quality. Weight-based protocol using automatic tube modulation was used to optimize exposure parameters. A PixelPlay 64 scanner was used, with Agatston scoring performed using [employer]) web-based software. This procedure is not being performed on thispatient for preoperative evaluation for low-risk surgery within 30 days. Total dose length product (DLP) was 85.8 mGy-cm. FINDINGS: Coronary Calcium Scoring Summary: Left Main: Score 0 . LAD: Score 0 . Circumflex: Score 0 . Right: Score 0 . Ramus: Score 0 . TOTAL: Score 0 . Non-coronary Findings: No significant findings. IMPRESSION: 1. No significant incidental findings. 2. The Agatston coronary calcium score is 0 . Normal. WSN: [id number] Ordering Physician: Ziyad King Dictated By: Yuan Torres MD Dictated Date/Time: 04/10/25 9:13 pm Reviewed By: Yuan Torres MD Signed By: Yuan Torres MD Signed Date/Time: 04/10/25 9:13 pm Transcribed By: GARY Transcribed Date/Time: 04/10/25 9:10 pm Social History Social History Type Response Smoking Status Never (less than 100 in lifetime) entered on: 07/13/22 Sex Sex Representation Female (finding) Patient Care team information Care Team Personnel Name: Oneyda Alexander Position: [facility] Associate Professional Member Role: PCP Address: [address] [place] [address] [place] [address]- Telecom: Care Team Related Persons Name: CRISTINA BLISS Name: BAILEY VILLARREAL Insurance Providers Guarantor name: SHARONKATHLEEN RAYA Health Plan Information #: 1 Payer: DYLAN: AD[employer]ED PAYMENT EXAM Member Number: [id number] Policy Number: NA Group Number: NA Health Plan Information #: 2 Payer: HMO BLUE IN NETWORK Member Number: NA Policy Number: NA Group Number: NA
--- OUTSIDE RECORDS SUMMARY | 2025-04-18 14:40 | XMS_ITS | Patient Health Record ---
Author Organization [facility] Address [address] [place] [address] Care Team Providers Care Geography Department Chair Name Role Phone Lay Tay Primary Care [...] Insured Coverage Start Date Coverage End Date [facility] and [facility] [address] [place] [address] [phone] [id number] 4 Sammy Tian Self - patient is [...]
== END 2025-04-18 17:18 | disposition home or self-care (01) ==
LOC: HO.HMCFM 14:20
PROVIDERS: PCP Nurse Practitioner Family; Visit Provider Nurse Practitioner Family
DX: E78.00 Pure hypercholesterolemia, unspecified (principal); R74.8 Abnormal levels of other serum enzymes; N95.1 Menopausal and female climacteric states; Z78.0 Asymptomatic menopausal state; K59.01 Slow transit constipation

== ENCOUNTER → 2025-04-18 14:20 | Outpatient (BNVA) | payer BC, SELFPAY | PROVIDERS: PCP Nurse Practitioner Family; Visit Provider Nurse Practitioner Family | DX: J45.20 Mild intermittent asthma, uncomplicated (principal); E55.9 Vitamin D deficiency, unspecified; G47.00 Insomnia, unspecified; R74.8 Abnormal levels of other serum enzymes; N95.1 Menopausal and female climacteric states; E78.00 Pure hypercholesterolemia, unspecified; K59.01 Slow transit constipation | CPT/HCPCS: 98968 ==

== ENCOUNTER 2025-06-15 13:36 | Outpatient (REF) | payer BC, SELFPAY ==
--- OUTSIDE RECORDS SUMMARY | 2025-06-15 13:39 | XMS_ITS ---
[...] 110 mcg/actuation inhaler Inhale 07/13/2022 act mayra Allergies Allergen Reaction Severity Comment Documented Date Source Statu s OPIOIDS - MORPHINE ANALOGUES OTHER (SEE COMMENTS) Hypotensive 02/16/2025 [facility] active Problems Problem Status Onset Date Problem Type [...]
--- OUTSIDE RECORDS SUMMARY | 2025-06-15 13:39 | XMS_ITS | Patient Health Record ---
Author Organization [facility] Address [address] [facility] [address] [place] [address] Care Team Providers Care Development Scientist Name Role Phone Lay Tay Primary Care [...] Insured Coverage Start Date Coverage End Date [facility] and [facility] [address] [place] [address] [phone] [id number] 4 Sammy Tian Self - patient is [...]
[2025-06-15 17:45] LABS: Alanine Aminotransferase 51 U/L (0-31); Albumin Level 4.2 g/dL (3.5-5.0); Alkaline Phosphatase 56 U/L (39-117); Anion Gap 11 (12-20); Aspartate Amino Transferase 52 U/L (5-31); Blood Urea Nitrogen 14 mg/dL (9-16); Calcium 9.3 mg/dL (8.4-10.2); Carbon Dioxide 28 mmol/L (22-29); Chloride 101 mmol/L (96-108); Estimated Glomerular Filt Rate > 60; Potassium 4.2 mmol/L (3.3-5.1); Sodium 136 mmol/L (135-145); Total Protein 7.0 g/dL (6.5-8.0)
[2025-06-16 03:44] LABS: HBS Num1 0.36 mIU/mL (0-7.99); HBc Num1 0.09 S/CO (0.00-0.79); HBsAGNum1 0.39 S/CO (0.00-0.99); Hepatitis A Antibody IgM 0.14 Index (0-0.79); Hepatitis B Surface Antigen Negative (Negative); ~HepC Num1 0.08 S/CO (0.00-0.79); ~Hepatitis A Antibody IgM Nonreactive (Nonreactive); ~Hepatitis B Surface Antibody NONREACTIVE (Nonreactive); ~Hepatitis C Antibody Nonreactive (Nonreactive)
== END 2025-06-15 13:37 | disposition home or self-care (01) ==
LOC: HO.WFDLDS 13:36
PROVIDERS: Visit Provider Nurse Practitioner Family
DX: Z00.00 Encounter for general adult medical examination without abnormal findings (principal); R74.8 Abnormal levels of other serum enzymes; E78.00 Pure hypercholesterolemia, unspecified
CPT/HCPCS: 36415; 80053; 82248; 86704; 86706; 86709; 86803; 87340

== ENCOUNTER 2025-06-18 12:59 | Outpatient (AMB) | payer BC, SELFPAY ==
--- NOTE | 2025-06-18 12:57 | A.OFFPC_ITS ---
Intake Visit Reasons: review labs/elevated LFTS Intake Note: Telehealth to review labs Dairy Technologist Required: No Allergies morpine Allergy (Unknown, Uncoded 06/18/25 12:58) Hypotension Medication List - Last Reconciled 06/18/25 by Raysa Youngblood [facility]- albuterol sulfate 90 mcg/actuation 2 puffs inhalation Q4-6H PRN 30 days albuterol-budesonide 90-80 mcg/actuation (Airsupra) 2 inhalations inhalation Q4- 6H PRN cetirizine (Zyrtec) 10 mg PO DAILY PRN fluticasone propionate 50 mcg/actuation 2 sprays intranasal DAILY hydroxyzine HCl 100 mg (2 x 50 mg) PO BEDTIME multivitamin 1 tab PO DAILY trazodone 100 mg (2 x 50 mg) PO BEDTIME Tobacco use date assessed: 06/18/25 Dental Screening Dental Screen Date: 06/18/25 Did you have a dental visit in the last 12 months?: Yes Did you have a dental problem in the last 6 months where you did not have access to dental care?: No Was dental information given to patient?: Patient has dentist HPI HPI Comments History of Present Illness Details 54-year-old female with mild intermitten t asthma, vitamin-D deficiency, hyperlipidemia, insomnia, seasonal allergies, menopause s/p removal of cyst, L shoulder surgery 07/28/24 History of Present Illness - The patient is a 54-year-old female pr esenting with elevated liver enzymes and gastrointestinal bloating symptoms. - Liver enzymes mildly elevated from March , increased a little since then (see below) - Occasional bloating post-vitamin intak e. ( magnesium, fish oil ) - Hydroxyzine for sleep, halted trazodon e due to inefficacy. - Psyllium capsules improved bowel regul arity. this is new - new complaints of RUQ pain after suppl ement intake & some meals ? biliary colic Review of Systems - Gastrointestinal: Reports occasional a bdominal bloating, no persistent abdominal pain. - General: Denies fever. - Musculoskeletal: Denies use of NSAIDs frequently. - Sleep: Reports interrupted sleep, requ iring medication for assistance. Results - Labs: Previous liver enzyme tests josy cating mild elevation. - Tests and Diagnostics: Ultrasound imag ing recommended for liver and upper abdomen to evaluate potential fatty liver disease and gallbladder status. Assessment and Plan 1. Elevated liver enzymes - Mild elevation noted. - Ultrasound of the liver recommended. 2. Mild gastrointestinal symptoms - Potentially linked to supplement intak e. - Reduction of non-essential supplements considered. 3. Sleep disturbances - Hydroxyzine cont; trazodone ineffectiv e - dc. - Occasional melatonin use discussed. FU once imaging resulted. Telehealth Attestation This visit was conducted via telehealth with verbal consent obtained from the patient for evaluation and management through video consultation. Documentation accurately reflects the discussion and care plan established during this encounter. The patient has been explained that this is an interactive (audio/video) telehealth encounter and what that consists of. The patient understands and wishes to proceed. [employer] platform was used. Total time spent caring for the patient today was 31 minutes. This includes time spent before the visit reviewing the chart, time spent during the visit, and time spent after the visit on documentation, reviewing laboratory results, diagnostic imaging, medications, performing a medically necessary evaluation, counseling on diagnoses, care coordination, ordering appropriate tests, ordering appropriate medications, review of tests performed by other providers, reporting test results with the patient, communication with other healthcare providers. [facility] Medical History (Updated 06/18/25 @ 15:04 by Raysa Youngblood, [facility]) Acute respiratory disease Allergic rhinitis Asthma Environmental and seasonal allergies Hyperlipidemia Insomnia associated with menopause Surgical History H/O removal of cyst Status post shoulder surgery Family History Mother No problems noted. Father No problems noted. Paternal Grandmother Colon cancer Social History Housing: House Patient Tobacco Use Status: Never used Tobacco e-Cigarette/Vaping Use: Never Used Second Hand Smoke Exposure: No service: No Current occupational exposures/hazards: No Cognitive needs: No Hearing needs: No Vision needs: No Questionnaire Thrive Questionnaire Date Thrive assessed: 01/22/25 MARTÍN-7 AMB Questionnaire MARTÍN-7 Date MARTÍN - 7 assessed: 03/30/25 Source: Developed by Drs. Tanner Arredondo, Bre Stout, Camacho Healy and colleagues, with an educational jose from [employer] Physical exam (Primary Care) Tobacco/Smoking Status: Tobacco use Status Tobacco use date assessed 06/18/25 06/18/25 12:58 Patient Tobacco Use Status Never used Tobacco 06/18/25 12:58 e-Cigarette/Vaping Use Never Used 06/18/25 12:58 Thrive Assessment: Date of Thrive Assessment Date Thrive assessed 01/22/25 06/18/25 12:58 Telehealth Telehealth Telehealth Platform: [facility] Location of provider rendering services: practice address Location of patient: address on file Patient Identification confirmed using: Name, : Yes Telehealth method: voice only Patient verbally consented to treatment: Yes Patient verbally consented to billing insurance company: Yes Patient informed of any privacy concerns related to visit: Yes Minutes spent on Phone/Video with Pt.: 15 Results Reviewed Results Reviewed: 03/2025 ApoB elevated, lipoA normal, CRP normal 06/16/25 Laboratory Result Units Range Interpretation Provider Comments Sodium Level 136 mmol/L (135-145) Potassium Level 4.2 mmol/L (3.3-5.1) Chloride Level 101 mmol/L (96-108) Carbon Dioxide Level 28 mmol/L (22-29) Anion Gap 11 (12-20) Low Blood Urea Nitrogen 14 mg/dL (9-16) Creatinine 0.86 mg/dL (0.5-1.4) Estimated Creatinine Clearance Calc Not Reportable Estimat Glomerular Filtration Rate > 60 Random Glucose 96 mg/dL (60-115) Calcium Level 9.3 mg/dL (8.4-10.2) Total Bilirubin 0.4 mg/dL (0.0-1.0) Direct Bilirubin 0.1 mg/dL (0.0-0.5) Aspartate Amino Transf (AST/SGOT) 52 U/L (5-31) High Alanine Aminotransferase (ALT/SGPT) 51 U/L (0-31) High Alkaline Phosphatase 56 U/L (39-117) Total Protein 7.0 g/dL (6.5-8.0) Albumin 4.2 g/dL (3.5-5.0) Hepatitis A IgM Antibody Nonreactive (Nonreactive) Hepatitis B Surface Antigen Negative (Negative) Hepatitis B Surface Antibody NONREACTIVE (Nonreactive) Hepatitis B Core Total Antibody Nonreactive (Nonreactive) Hepatitis C Antibody (EIA) Nonreactive (Nonreactive) Coding Level of Care Code Tele Est Pt Level 4 (52778) Complex EM visit Add On G2211 Diagnoses Elevated liver enzymes R74.8 Gas bloat syndrome K92.89 Biliary colic symptom K80.50 Assessment & Plan Assessment & Plan (1) Elevated liver enzymes: Code(s): R74.8 - Abnormal levels of other serum enzymes Category: Medical (2) Gas bloat syndrome: Code(s): K92.89 - Other specified diseases of the digestive system Category: Medical (3) Biliary colic symptom: Code(s): K80.50 - Calculus of bile duct without cholangitis or cholecystitis without obstruction Category: Medical Plan . Orders: Orders US abdomen dumont w elastography Today K80.50 - Calculus of bile duct without cholangitis or cholecystitis without obstruction, K92.89 - Other specified diseases of the digestive system, R74.8 - Abnormal levels of other serum enzymes Medications: Discontinued trazodone Discontinued Reason: Patient Completed Course 100 mg (2 x 50 mg) PO BEDTIME 180 tabs 1RF for insomnia
--- OUTSIDE RECORDS SUMMARY | 2025-06-18 13:44 | XMS_ITS | Patient Health Record ---
Author Organization [facility] Address [address] [facility] [facility] [address] [place] [address] Care Team Providers Care Water Softener Servicer And Installer Name Role Phone Lay Tay Primary Care [...] Insured Coverage Start Date Coverage End Date [facility] [address] [place] [address] [phone] [id number] 4 Sammy Tian Self - patient is [...]
== END 2025-06-18 15:08 | disposition home or self-care (01) ==
LOC: HO.HMCFM 12:59
PROVIDERS: PCP Nurse Practitioner Family; Visit Provider Nurse Practitioner Family
DX: R74.8 Abnormal levels of other serum enzymes (principal); K92.89 Other specified diseases of the digestive system; K80.50 Calculus of bile duct without cholangitis or cholecystitis without obstruction

== ENCOUNTER → 2025-06-18 12:59 | Outpatient (BNVA) | payer BC, SELFPAY | PROVIDERS: PCP Nurse Practitioner Family; Visit Provider Nurse Practitioner Family | DX: R74.8 Abnormal levels of other serum enzymes (principal); K92.89 Other specified diseases of the digestive system; K80.50 Calculus of bile duct without cholangitis or cholecystitis without obstruction; G47.9 Sleep disorder, unspecified | CPT/HCPCS: 98967 ==

== ENCOUNTER 2025-06-20 08:27 | Outpatient (REF) | payer BC, SELFPAY ==
--- NOTE | ~2025-06-20 | US_ITS ---
EXAMINATION: US ABDOMEN LIMITED WITH LIVER ELASTOGRAPHY HISTORY: R74.8 - ELEVATED LIVER ENZYMES TECHNIQUE: Real-time grayscale ultrasound imaging of the right upper quadrant was performed and images were reviewed. COMPARISON: There are no prior studies available for comparison. FINDINGS: Liver: The right lobe of the liver measures 16.7 cm in size. The left lobe of the liver measures 10.6 cm in size. The liver demonstrates mildly increased echotexture, consistent with steatosis. There is a 1.1 cm cyst in the left lobe. No intrahepatic biliary ductal dilatation is identified. There is normal hepatopedal flow in the portal vein. Ultrasound elastography of the liver was performed with 10 separate measurements of the liver parenchyma with the patient in the supine position. Measurements were obtained approximately 2 cm below Darin's capsule and perpendicular to the capsule. The median shear wave velocity is 1.60 m/s. The interquartile range/median (IQR/median) is 0.12. Gallbladder and biliary tree: The gallbladder is unremarkable, without evidence of calculi, wall thickening, or pericholecystic fluid. There is no sonographic Cazares sign. The common bile duct is normal in caliber measuring 4 mm. Right Kidney: The right kidney measures 10.0 cm in length and demonstrates mild fullness of the renal pelvis. The right kidney is otherwise unremarkable, without evidence of masses, hydronephrosis, or calculi. Pancreas: The pancreatic head, neck, and body are unremarkable. The pancreatic tail is obscured by bowel gas. Abdominal aorta and inferior vena cava: The visualized portions of the abdominal aorta and inferior vena cava are normal in caliber. There is no free fluid in the right upper quadrant. US/US abdomen dumont w elastography IMPRESSION: Hepatomegaly and mild hepatic steatosis. The median shear wave velocity in the liver is 1.60 m/s, corresponding to a median liver stiffness of 7.77 kPa. The IQR/median value is 0.12. This is indicative of a quality data set. Findings are indicative of a low elastography value which rules out advanced chronic liver disease in asymptomatic patients. REFERENCE: Society of Radiologists in Ultrasound Liver Stiffness Thresholds (2020): LIVER STIFFNESS THRESHOLDS: *Shear wave velocity less than 1.3 m/s (Liver Stiffness equal or less than 5 kPa): High probability of being normal. *Shear wave velocity less than 1.7 m/s (Liver Stiffness less than 9 kPa): In the absence of other known clinical signs, rules out compensated advanced chronic liver disease. *Shear wave velocity between 1.7-2.1 m/s (Liver Stiffness 9-13 kPa): Suggestive of compensated advanced chronic liver disease but need further test for confirmation. *Shear wave velocity between 2.1-2.4 m/s (Liver Stiffness 13-17 kPa): Rules in compensated advanced chronic liver disease. *Shear wave velocity greater than 2.4 m/s (Liver Stiffness over 17 kPa): Suggestive of clinically significant portal hypertension. QUALITY OF DATA SET: SIGNIFICANT CHANGE FROM PRIOR EXAM: Significant change if liver stiffness measurement is 10% or greater from prior exam. OTHER CONSIDERATIONS: The stage of liver fibrosis may be overestimated in the setting of acute hepatitis, liver inflammation, elevated liver function tests, hepatic vascular congestion, obstructive cholestasis, non-fasting state, and infiltrative diseases such as amyloidosis and lymphoma. In some patients with NAFLD, the liver stiffness thresholds for compensated advanced chronic liver disease may be lower. In causes other than viral hepatitis and NAFLD, liver stiffness thresholds are not well established. Electronically signed by: Tanner Medina MD 06/20/2025 09:29 AM EDT
--- OUTSIDE RECORDS SUMMARY | 2025-06-20 08:41 | XMS_ITS | Patient Health Record ---
Author Organization [facility] Address [address] [facility] [address] [place] [address] Care Team Providers Care Glass Embosser Name Role Phone Lay Tay Primary Care [...] Insured Coverage Start Date Coverage End Date [facility] and [facility] [address] [place] [phone] [id number] Sammy Tian Self - patient is [...]
== END 2025-06-20 08:28 | disposition home or self-care (01) ==
LOC: HO.US 08:27
PROVIDERS: PCP Nurse Practitioner Family; Visit Provider Nurse Practitioner Family
DX: K76.0 Fatty (change of) liver, not elsewhere classified (principal); K76.89 Other specified diseases of liver; K59.01 Slow transit constipation; R93.41 Abnormal radiologic findings on diagnostic imaging of renal pelvis, ureter, or bladder; R30.0 Dysuria; R74.8 Abnormal levels of other serum enzymes; K92.89 Other specified diseases of the digestive system; K80.50 Calculus of bile duct without cholangitis or cholecystitis without obstruction; R10.11 Right upper quadrant pain; Z79.899 Other long term (current) drug therapy
CPT/HCPCS: 76705; 76981

== ENCOUNTER → 2025-06-20 08:30 | Outpatient (BNV) | payer BC, SELFPAY | PROVIDERS: PCP Nurse Practitioner Family; Visit Provider Radiology Diagnostic Radiology | DX: R16.0 Hepatomegaly, not elsewhere classified (principal); K59.00 Constipation, unspecified | CPT/HCPCS: 74018; 76705 ==

== ENCOUNTER 2025-06-20 13:00 | Outpatient (AMB) | payer BC, SELFPAY ==
--- NOTE | 2025-06-20 13:03 | MHC.OFFWIV ---
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 Required: No Allergies morpine Allergy (Unknown, Uncoded 06/20/25 13:14) Hypotension Medication List - Last Reconciled 06/20/25 by Raysa Youngblood, [facility]- albuterol sulfate 90 mcg/actuation 2 puffs inhalation Q4-6H PRN 30 days albuterol-budesonide 90-80 mcg/actuation (Airsupra) 2 inhalations inhalation Q4-6H PRN cetirizine (Zyrtec) 10 mg PO DAILY PRN fluticasone propionate 50 mcg/actuation 2 sprays intranasal DAILY hydroxyzine HCl 100 mg (2 x 50 mg) PO BEDTIME multivitamin 1 tab PO DAILY Do you need a note to return to daycare/school/sports/work: No HPI HPI Comments History of Present Illness Details 54-year-old female with mild intermittent asthma, vitamin-D deficiency, hyperlipidemia, insomnia, seasonal allergies, menopause s/p removal of cyst, L shoulder surgery 07/28/24 Info from visit 06/18/25: - The patient is a 54-year-old female presenting with elevated liver enzymes and gastrointestinal bloating symptoms. - Liver enzymes mildly elevated from March, increased a little since then (see below) - Occasional bloating post-vitamin intake. ( magnesium, fish oil ) - Hydroxyzine for sleep, halted trazodone due to inefficacy. - Psyllium capsules improved bowel regularity. this is new - new complaints of RUQ pain after supplement intake & some meals ? biliary colic Review of Systems - Gastrointestinal: Reports occasional abdominal bloating, no persistent abdominal pain. - General: Denies fever. - Musculoskeletal: Denies use of NSAIDs frequently. - Sleep: Reports interrupted sleep, requiring medication for assistance. Results - Labs: Previous liver enzyme tests indicating mild elevation. - Tests and Diagnostics: Ultrasound imaging recommended for liver and upper abdomen to evaluate potential fatty liver disease and gallbladder status. Assessment and Plan 1. Elevated liver enzymes - Mild elevation noted. - Ultrasound of the liver recommended. 2. Mild gastrointestinal symptoms - Potentially linked to supplement intake. - Reduction of non-essential supplements considered. 3. Sleep disturbances - Hydroxyzine cont; trazodone ineffective - dc. - Occasional melatonin use discussed. Today she present to follow-up on a liver ultrasound & for new complaints r/t RUQ - Mild hepatic steatosis was detected, without cirrhosis. - Mild fullness noted in the right renal pelvis, considered incidental. - Describes right upper quadrant pain, suspected muscular, following physical activity but not all activity such as running. It does not radiate to groin. She reports it started in R flank and radiates to RUQ. This started Wednesday. [place] beach yesterday felt like a golf ball was there but couldnt feel anything when touching and it did not hurt to touch. - Pain intensifies at night and with certain movements. - No urinary symptoms, fever, or chills reported. Review of Systems - Gastrointestinal: Reports mild hepatic steatosis; denies gastrointestinal symptoms. - Urinary: Denies dysuria, hematuria, fever, or chills. - Musculoskeletal: Reports right upper quadrant pain, suspected as muscular. - Neurological: Denies neurological deficits or symptoms. Physical Exam General: Well developed, well nourished, in no acute distress. Appears stated age. Head: Normocephalic, atraumatic. Eyes: Pupils are equal, round and reactive to light and accommodation. Conjunctivae are clear. MMM Abdomen: RUQ and RLQ tenderness w/ palp w/o rebound or guarding, negative murphys sign; negative psoas sign. No masses or hernias. No suprapubic tenderness; NO CVAT bilat Musculoskeletal: No spinal or paraspinal pain w/ palpation; BARAHONA x 4 Diagnostic results See below Discussion Notes I discussed with the patient the results of her liver ultrasound which showed mild hepatic steatosis but no cirrhosis, which is reassuring. Benign appearing liver cyst which does not require fu. We reviewed the incidental finding of mild fullness in the right renal pelvis, likely of no clinical significance at this time. I explained that her right upper quadrant pain is likely musculoskeletal in nature, given the lack of urinary symptoms or systemic signs. Options to address her symptoms were discussed, including urinalysis and potential imaging studies like KUB x-ray. I explained the rationale for obtaining a urinalysis to rule out infection and observing for any change in symptoms. We discussed the opportunity for further imaging to rule out stones, should symptoms persist or worsen, although initial management would focus on conservative measures due to the likely muscular etiology. Also offered Renal US and Renal consult, We agreed on proceeding with a urinalysis today, and I placed an order for a KUB x-ray. Assessment and Plan 1. Hepatic Steatosis/simple liver cyst - Mild steatosis; monitor liver functions. 2. Right Renal Pelvis Fullness - Likely incidental 3. Right Upper Quadrant and R flank pain - Suspected muscular origin. - Proceed with urinalysis - KUB x-ray to r/o stones which was negative. Pt called at 1455 with results; given and then the call dropped while going over plan of care; message sent via portal w/ details ill send muscle relaxer but i need you to treat the constipation I recommend miralax 1 capful in 8oz nightly until having 1-2 bowel movements per day. I do not want you to have diarrhea but a few bowel movements are needed to clear your colon. Take until resolved. Raysa Consent Patient was informed and verbally consented to the use of an ambient scribe for clinic note documentation during this visit. Total time spent caring for the patient today was 45 minutes. This includes time spent before the visit reviewing the chart, time spent during the visit, and time spent after the visit on documentation, reviewing laboratory results, diagnostic imaging, medications, performing a medically necessary evaluation, counseling on diagnoses, care coordination, ordering appropriate tests, ordering appropriate medications, review of tests performed by other providers, reporting test results with the patient, communication with other healthcare providers. [facility] Medical History (Updated 06/20/25 @ 13:47 by Raysa Youngblood, [facility]) Acute respiratory disease Allergic rhinitis Asthma Environmental and seasonal allergies Hyperlipidemia Insomnia associated with menopause Surgical History H/O removal of cyst Status post shoulder surgery Family History Mother No problems noted. Father No problems noted. Paternal Grandmother Colon cancer Social History Housing: House Patient Tobacco Use Status: Never used Tobacco e-Cigarette/Vaping Use: Never Used Second Hand Smoke Exposure: No service: No Current occupational exposures/hazards: No Cognitive needs: No Hearing needs: No Vision needs: No Physical Exam Vital Signs: Last Vital Signs Temp 97.2 F 06/20/25 13:06 Pulse 66 06/20/25 13:06 Resp 12 06/20/25 13:06 BP 124/70 06/20/25 13:06 Pulse Ox 99 06/20/25 13:06 Oxygen Delivery Method Room Air 06/20/25 13:06 BMI result Body Mass Index 25.9 Results Reviewed Results Reviewed: [address] [address] Ultrasound Report Signed Patient: Sammy Saenz MR#: [id number] : 1970 Acct:[id number] Age/Sex: 54 / F ADM Date: 06/20/25 Loc: HO.US Attending Dr: Raysa MADRID Ordering Physician: Raysa Youngblood Date of Service: 06/20/25 Procedure(s): US abdomen dumont w elastography Accession Number(s): [id number] cc: Raysa Youngblood~ EXAMINATION: US ABDOMEN LIMITED WITH LIVER ELASTOGRAPHY HISTORY: R74.8 - ELEVATED LIVER ENZYMES TECHNIQUE: Real-time grayscale ultrasound imaging of the right upper quadrant was performed and images were reviewed. COMPARISON: There are no prior studies available for comparison. FINDINGS: Liver: The right lobe of the liver measures 16.7 cm in size. The left lobe of the liver measures 10.6 cm in size. The liver demonstrates mildly increased echotexture, consistent with steatosis. There is a 1.1 cm cyst in the left lobe. No intrahepatic biliary ductal dilatation is identified. There is normal hepatopedal flow in the portal vein. Ultrasound elastography of the liver was performed with 10 separate measurements of the liver parenchyma with the patient in the supine position. Measurements were obtained approximately 2 cm below Darin's capsule and perpendicular to the capsule. The median shear wave velocity is 1.60 m/s. The interquartile range/median (IQR/median) is 0.12. Gallbladder and biliary tree: The gallbladder is unremarkable, without evidence of calculi, wall thickening, or pericholecystic fluid. There is no sonographic Cazares sign. The common bile duct is normal in caliber measuring 4 mm. Right Kidney: The right kidney measures 10.0 cm in length and demonstrates mild fullness of the renal pelvis. The right kidney is otherwise unremarkable, without evidence of masses, hydronephrosis, or calculi. Pancreas: The pancreatic head, neck, and body are unremarkable. The pancreatic tail is obscured by bowel gas. Abdominal aorta and inferior vena cava: The visualized portions of the abdominal aorta and inferior vena cava are normal in caliber. There is no free fluid in the right upper quadrant. US/US abdomen dumont w elastography IMPRESSION: Hepatomegaly and mild hepatic steatosis. The median shear wave velocity in the liver is 1.60 m/s, corresponding to a median liver stiffness of 7.77 kPa. The IQR/median value is 0.12. This is indicative of a quality data set. Findings are indicative of a low elastography value which rules out advanced chronic liver disease in asymptomatic patients. REFERENCE: Society of Radiologists in Ultrasound Liver Stiffness Thresholds (2020): LIVER STIFFNESS THRESHOLDS: *Shear wave velocity less than 1.3 m/s (Liver Stiffness equal or less than 5 kPa): High probability of being normal. *Shear wave velocity less than 1.7 m/s (Liver Stiffness less than 9 kPa): In the absence of other known clinical signs, rules out compensated advanced chronic liver disease. *Shear wave velocity between 1.7-2.1 m/s (Liver Stiffness 9-13 kPa): Suggestive of compensated advanced chronic liver disease but need further test for confirmation. *Shear wave velocity between 2.1-2.4 m/s (Liver Stiffness 13-17 kPa): Rules in compensated advanced chronic liver disease. *Shear wave velocity greater than 2.4 m/s (Liver Stiffness over 17 kPa): Suggestive of clinically significant portal hypertension. QUALITY OF DATA SET: SIGNIFICANT CHANGE FROM PRIOR EXAM: Significant change if liver stiffness measurement is 10% or greater from prior exam. OTHER CONSIDERATIONS: The stage of liver fibrosis may be overestimated in the setting of acute hepatitis, liver inflammation, elevated liver function tests, hepatic vascular congestion, obstructive cholestasis, non-fasting state, and infiltrative diseases such as amyloidosis and lymphoma. In some patients with NAFLD, the liver stiffness thresholds for compensated advanced chronic liver disease may be lower. In causes other than viral hepatitis and NAFLD, liver stiffness thresholds are not well established. Electronically signed by: Tanner Medina MD 06/20/2025 09:29 AM EDT Dictated By: Tanner Medina MD Signed By: <Electronically signed by Tanner Medina MD in OV> 06/20/[address] [address] XRay Report Signed Patient: Sammy Saenz MR#: [id number] : 1970 Acct:[id number] Age/Sex: 54 / F ADM Date: 06/20/25 [facility] Att[facility] Dr: Raysa MADRID Ordering Physician: Raysa Youngblood Date of Service: 06/20/25 Procedure(s): XR KUB Accession Number(s): [id number] cc: Raysa Youngblood~ EXAMINATION: XR ABDOMEN 1 VIEW (KUB) HISTORY: R93.41 - Abnormal radiologic findings on diagnostic imaging of renal pelvis... COMPARISON: There are no prior studies available for comparison. FINDINGS: Two supine views of the abdomen are submitted. The bowel gas pattern is unremarkable, without evidence of mechanical obstruction. There is a large amount of stool throughout the colon. No abnormal calcifications are identified. There are no abnormal soft tissue masses. The bones are intact. XR/XR KUB IMPRESSION: Large amount of stool throughout the colon. Assessment & Plan Assessment & Plan (1) Hepatic steatosis: Onset Date: ~06/20/25 Comment: The liver demonstrates mildly increased echotexture, consistent with steatosis. There is a 1.1 cm cyst in the left lobe. Code(s): K76.0 - Fatty (change of) liver, not elsewhere classified (2) Liver cyst: Onset Date: ~06/20/25 Comment: The liver demonstrates mildly increased echotexture, consistent with steatosis. There is a 1.1 cm cyst in the left lobe. Code(s): K76.89 - Other specified diseases of liver (3) Renal pelvis enlarged on ultrasound: Comment: The right kidney measures 10.0 cm in length and demonstrates mild fullness of the renal pelvis normal renal function Code(s): R93.41 - Abnormal radiologic findings on diagnostic imaging of renal pelvis, ureter, or bladder (4) Constipation: Code(s): K59.00 - Constipation, unspecified Qualifiers: Constipation type: slow transit constipation Qualified Code(s): K59.01 - Slow transit constipation Plan . Orders: Orders UA CC w/rflx Micro + Cult Today R30.0 - Dysuria XR KUB Today R93.41 - Abnormal radiologic findings on diagnostic imaging of renal pelvis, ureter, or bladder Medications: New baclofen 10 mg PO BEDTIME PRN 7 tabs 0RF muscle spasm Coding Level of Care Code Est Pt Level 5 (06998) Diagnoses Hepatic steatosis K76.0 Liver cyst K76.89 Renal pelvis enlarged on ultrasound R93.41 Slow transit constipation K59.01 Constipation type: slow transit constipation
[2025-06-20 13:06] VITALS: BP 124/70; PULSE 66; RESP 12; TEMP 36.2; O2SAT 99; BMI 25.9
== END 2025-06-20 13:43 | disposition home or self-care (01) ==
LOC: HO.HMCFM 13:01
PROVIDERS: PCP Nurse Practitioner Family; Visit Provider Nurse Practitioner Family
DX: K76.0 Fatty (change of) liver, not elsewhere classified (principal); K76.89 Other specified diseases of liver; R93.41 Abnormal radiologic findings on diagnostic imaging of renal pelvis, ureter, or bladder; K59.01 Slow transit constipation

== ENCOUNTER 2025-06-20 13:39 | Outpatient (REF) | payer BC, SELFPAY ==
--- NOTE | ~2025-06-20 | XR_ITS ---
EXAMINATION: XR ABDOMEN 1 VIEW (KUB) HISTORY: R93.41 - Abnormal radiologic findings on diagnostic imaging of renal pelvis... COMPARISON: There are no prior studies available for comparison. FINDINGS: Two supine views of the abdomen are submitted. The bowel gas pattern is unremarkable, without evidence of mechanical obstruction. There is a large amount of stool throughout the colon. No abnormal calcifications are identified. There are no abnormal soft tissue masses. The bones are intact. XR/XR KUB IMPRESSION: Large amount of stool throughout the colon. Electronically signed by: Tanner Medina MD 06/20/2025 02:45 PM EDT
[2025-06-20 17:45] LABS: Appearance Urine Clear; Glucose Urine UA Negative (Negative); PH 7.0 (5.0-9.0); Specific Gravity - Urine <= 1.005 (1.005-1.025)
== END 2025-06-20 13:40 | disposition home or self-care (01) ==
LOC: HO.WFDLDS 13:39
PROVIDERS: Visit Provider Nurse Practitioner Family
DX: R93.41 Abnormal radiologic findings on diagnostic imaging of renal pelvis, ureter, or bladder (principal); R30.0 Dysuria; R74.8 Abnormal levels of other serum enzymes; K92.89 Other specified diseases of the digestive system; K80.50 Calculus of bile duct without cholangitis or cholecystitis without obstruction
CPT/HCPCS: 74018; 81003

== ENCOUNTER 2025-08-02 07:05 | Outpatient (REF) | payer BC, SELFPAY ==
--- OUTSIDE RECORDS SUMMARY | 2025-08-02 07:08 | XMS_ITS | Patient Health Record ---
Author Organization [facility] Address [address] [place] [address] Care Team Providers Care Evp Operations Name Role Phone Lay Tay Primary Care [...] Start Date Coverage End Date [facility] [address] [place] [address] [phone] [id number] Sammy Tian Self - patient is [...]
[2025-08-02 08:10] LABS: Hemoglobin A1C 117.9546 umol/L; Total Hemoglobin (HGBA1C) 3518.4722 umol/L
[2025-08-02 08:31] LABS: Cholesterol 243 mg/dL (<200); HDL Cholesterol 94 mg/dL (>40); Triglycerides 50 mg/dL (<150)
[2025-08-02 08:49] LABS: Folate 15.0 ng/mL (> or = 4.0); Vitamin B12 1418 pg/mL (200-900)
== END 2025-08-02 07:06 | disposition home or self-care (01) ==
LOC: HO.LAB 07:05
PROVIDERS: PCP Nurse Practitioner Family; Visit Provider Nurse Practitioner Family
DX: Z00.00 Encounter for general adult medical examination without abnormal findings (principal); E78.00 Pure hypercholesterolemia, unspecified; R74.8 Abnormal levels of other serum enzymes; Z13.1 Encounter for screening for diabetes mellitus; Z13.21 Encounter for screening for nutritional disorder
CPT/HCPCS: 36415; 80061; 82043; 82306; 82570; 82607; 82746; 83036; 84443

== ENCOUNTER 2025-08-15 07:57 | Outpatient (AMB) | payer BC, SELFPAY ==
--- NOTE | 2025-08-15 08:05 | A.OFFPC_ITS ---
Vital Signs 08/15/25 08:08 Height 5 ft 4 in Weight 146 lb BMI 25.1 BP 104/66 Blood Pressure Location Lt brachial Position Sitting Respiration 12 Pulse 52 Pulse Source Pulse Oximeter Temp 97.2 F Temp Source Oral Pulse Oximetry (%) 96 Oxygen Delivery Method Room Air Intake Visit Reasons: Annual PE Intake Note: Annual physical Production Estimator Required: No Allergies morpine Allergy (Unknown, Uncoded 08/15/25 08:06) Hypotension Medication List - Last Reconciled 08/15/25 by Raysa Youngblood, [facility]- albuterol sulfate 90 mcg/actuation 2 puffs inhalation Q4-6H PRN 30 days albuterol-budesonide 90-80 mcg/actuation (Airsupra) 2 inhalations inhalation Q4- 6H PRN baclofen 10 mg PO BEDTIME PRN cetirizine (Zyrtec) 10 mg PO DAILY PRN estradiol (Swetha) 1 patch transdermal 2XW fluticasone propionate 50 mcg/actuation 2 sprays intranasal DAILY hydroxyzine HCl 100 mg (2 x 50 mg) PO BEDTIME multivitamin 1 tab PO DAILY progesterone micronized 100 mg PO QAM Tobacco use date assessed: 08/15/25 Dental Screening Dental Screen Date: 08/15/25 Did you have a dental visit in the last 12 months?: Yes Did you have a dental problem in the last 6 months where you did not have access to dental care?: No Was dental information given to patient?: Patient has dentist HPI HPI Comments History of Present Illness Details 54-year-old female with mild intermitten t asthma, vitamin-D deficiency, hyperlipidemia, insomnia, seasonal allergies, menopause, fatty liver s/p removal of cyst, L shoulder surgery 07/28/24 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 CVD Health maintenance Mammogram: 06/2025 Pap: Follows with Dr. Zamora, left oophrectomy 2021. Will be seeing Ina going forward Bone density: 2021 years ago, normal Colonoscopy: April 2023, due in 10 years Tdap admin today Specialists: POCKET CREASER first appt with Ina [facility] 07/10/25 Derm ENT Ortho Counselor [facility]On 06/20/25 at 8:50 am. Will be seeing [facility] going fwd, next appt 09/19/2025 History of Present Illness - The patient is a 54-year-old female pr esenting with a complete physical examination. - Asthma managed with albuterol as neede d. - Seasonal allergic rhinitis treated wit h Flonase and Zyrtec. - Insomnia persisted; transitioned from hydroxyzine to hormones. - Vitamin D deficiency supplement manage d. - Nonalcoholic fatty liver disease diagn osed via ultrasound without abdominal pain. - Hyperlipidemia noted with elevated apo lipoprotein, managed without statins. Taking citrus bergamot - Menopausal symptoms addressed with hor monal therapy. Menopause: Started Estradiol patch; progesterone to sleep; will fu in Aug. Wants off hydroxyzine. has not been able to get off yet - Constipation persists despite treatmen t; hydroxyzine noted as a contributing factor. Constipation: taking miralax QD. unable to come off. POCKET CREASER rec: Erasmo carrion. - B12 elevation cont. Reports no additio nal b12 in diet/supplements. Social History - Physically active; exercises at the gy m three times a week with a industrial trainer. - Reports effective participation in run joshua and gym workouts. - Consumes a balanced diet including risa ads and fruits. Health Maintenance - Mammogram, bone density, and Pap smear up to date. - Colonoscopy completed in 2022. - Calcium score reported as zero. - Regular monitoring of vitamin D and B1 2 levels. - Ongoing assessments of cholesterol lev els and continued use of citrus bergamot discussed. - Not up to date on tetanus vaccination; admin today . Review of Systems - General: Reports fatigue, but correlat es with ongoing activity and lifestyle. - Respiratory: Reports asthma, managed w ith albuterol as needed. - Gastrointestinal: Reports ongoing cons tipation and managed with dietary changes and MiraLAX; denies abdominal pain. - Dermatological: Denies skin issues or changes. - Musculoskeletal: Denies ongoing muscul oskeletal complaints. - Neurological: Reports no dizziness or headaches. - Psychological: Reports insomnia relate d to menopause. Physical Exam General: Well developed, well nourished, in no acute distress. Appears stated age. Head: Normocephalic, atraumatic. Eyes: Pupils are equal, round and reactive to light and accommodation. Conjunctivae are clear. Vision grossly normal. Ears: TMs clear AU, EACS WNL Nose: Patent, without discharge. Neck: Supple, no adenopathy or thyromegaly. Breast: Up to date on mammogram. Lungs: Clear to auscultation bilaterally. No rales, rhonchi or wheeze noted. Good air flow in all nieves. Heart: Regular rate and rhythm. No murmurs, click, rubs or gallops are noted. Abdomen: Bowel sounds present in all quadrants. The abdomen is soft, nontender, with no masses or organomegaly noted. No hernias are noted. Fatty liver noted on ultrasound. : Deferred. Reviewed recommendations for routine POCKET CREASER. Up to date on Pap smear. Pulses: Peripheral pulses are equal and palpable bilaterally. Extremities: No clubbing, cyanosis nor edema is noted. Neurologic: Gait and station normal. Cranial Nerves 2-12 intact. Motor strength grossly symmetrical and intact. No sensory loss. Balance normal. Skin: No rashes, ulcers, or lesions noted. Turgor is good. Skin color is good. Hair and nails are without abnormalities. Psych: Normal eye contact, affect and mood appropriate, and normal interactions. Patient is alert and appropriate to context. Results - Labs: Vitamin D level at 68.1 (normal range), B12 was high; discontinued supplements; Thyroid function tests within normal limits, no diabetes markers. - Tests and Diagnostics: Calcium score z ero, no significant coronary artery disease. Discussion Notes We discussed the patient's cardiovascular risk, emphasizing the elevated apolipoprotein levels and the decision not to initiate statin therapy given current lifestyle management. We explored ongoing insomnia management with hormo nal therapy, considering transitioning off hydroxyzine to reduce constipation. We reviewed laboratory findings, focusing on vitamin D adequacy and managing heightened B12 levels through dietary awareness. I reiterated the importance of ongoing physical activity, recommending continuation with current exercise routines. Additionally, we highlighted the need to complete pending vaccinations, specifically the tetanus booster. Patient was given time to ask questions. All questions were answered to their satisfaction. Assessment and Plan 1. Asthma - Use albuterol as needed. 2. Seasonal Allergic Rhinitis - Use Flonase and Zyrtec. 3. Insomnia - Continue hormone therapy; taper off hy droxyzine. 4. Vitamin D Deficiency - Continue supplement. 5. Nonalcoholic Fatty Liver Disease - Edu provided 6. Hyperlipidemia - Continue citrus bergamot. 7. Menopause-related Symptoms - Continue hormonal therapy. 8. Constipation - Use MiraLAX; modify hydroxyzine usage. 9. B12 Elevation - Adjust dietary intake. Patient Instructions - Continue using inhalers and allergy me dications as prescribed. - Take vitamin D and multivitamins daily . - Keep using MiraLAX to help with bowel movements; try to reduce hydroxyzine. - Stay active by working out and eating a balanced diet. - Get the tetanus booster shot. - Follow-up in 6 mo with repeat labs, so shana as needed. Consent The patient provided verbal consent after discussing the continuation of existing management plans, focusing on lifestyle and dietary interventions. I explained the lack of need for statin therapy at present, highlighting the use of citrus bergamot as an alternative with ongoing evaluations. We discussed the potential benefits of reducing hydroxyzine intake to address constipation concerns. Consent was reaffirmed verbally for follow-up evaluations and lab monitoring. Patient was informed and verbally consented to the use of an ambient scribe for clinic note documentation during this visit. An additional 30 minutes was spent addressing the problem(s) noted at todays visit. This includes time spent before the visit reviewing the chart, time spent during the visit, and time spent after the visit on documentation reviewing laboratory results, diagnostic imaging, medications, performing a medically necessary evaluation, counseling on diagnoses, care coordination, ordering appropriate tests, ordering appropriate medications, review of tests performed by other providers, reporting test results with the patient, communication with other healthcare providers. [facility] Medical History (Updated 08/15/25 @ 17:12 by Raysa Youngblood [facility]) Acute respiratory disease Allergic rhinitis Asthma Environmental and seasonal allergies Hyperlipidemia Insomnia associated with menopause Surgical History (Updated 08/15/25 @ 17:12 by Raysa Youngblood [facility]) H/O removal of cyst Status post shoulder surgery Family History Mother No problems noted. Father No problems noted. Paternal Grandmother Colon cancer Social History Housing: House Patient Tobacco Use Status: Never used Tobacco e-Cigarette/Vaping Use: Never Used Second Hand Smoke Exposure: No service: No Current occupational exposures/hazards: No Cognitive needs: No Hearing needs: No Vision needs: No Questionnaire PHQ-9 Over the last 2 weeks, how often have you been bothered by any of the following problems? 1. Little interest or pleasure in doing things: not at all 2. Feeling down, depressed, or hopeless: not at all 3. Trouble falling or staying asleep, or sleeping too much: not at all 4. Feeling tired or having little energy: not at all 5. Poor appetite or overeating: not at all 6. Feeling bad about yourself - or that you are a failure or have let yourself or your family down: not at all 7. Trouble concentrating on things, such as reading the newspaper or watching television: not at all 8. Moving or speaking so slowly that other people could have noticed. Or the opposite - being so fidgety or restless that you have been moving around a lot more than usual: not at all 9. Thoughts that you would be better off or of hurting yourself in some way: not at all Total score: 0 Depression Screening Interpretation: Negative Depression Screening Done: Yes 90912 - PHQ-9 Billing: Yes Source: Developed by Drs. Tanner Arredondo, Bre Stout, Camacho Healy and colleagues, with an educational jose from [employer]. Thrive Questionnaire Date Thrive assessed: 08/15/25 I am a: Patient What is your living situation today?: I have a steady place to live Within the past 12 months, did the food you bought not last and you didn't have the money to get more?: Never true Within the past 12 months, did you worry whether your food would run out before you got money to buy more?: Never true Do you have trouble paying for medicines?: No Do you have trouble getting transportation to medical appointments?: No Do you have trouble paying your heating and electricity bill?: No Do you have trouble taking care of your child, family member or friend?: No Do you have trouble with day-to-day activities such as bathing, preparing meals, shopping, managing finances, etc.?: No Are you currently unemployed and looking for a job?: No Are you interested in more education?: No Please select the resources that you would like help with: None Currently or been in a relationship where the following occur: No concerns reported THRIVE Score: 0 MATRÍN-7 AMB Questionnaire MARTÍN-7 Date MARTÍN - 7 assessed: 08/15/25 Feeling nervous, anxious, or on edge: 0 = Not at all Not being able to stop or control worryin = Not at all Worrying too much about different things: 0 = Not at all Trouble relaxin = Not at all Being so restless that it is hard to sit still: 0 = Not at all Becoming easily annoyed or irritable: 0 = Not at all Feeling afraid as if something awful might happen: 0 = Not at all Total MARTÍN-7 score (0-4 normal; 5-9 mild; 10-14 moderate; 15-21 severe): 0 Source: Developed by Drs. Tanner Arredondo, Bre Stout, Camacho Healy and colleagues, with an educational jose from [employer]. MARTÍN-7 Assessment Billing MARTÍN-7 Assessment Tool: MARTÍN-7 Assessment 51831 ACT Questionnaire In the past 4 weeks, how much of the time did your asthma keep you from getting as much done at work, school or at home?: None of the time During the past 4 weeks, how often have you had shortness of breath?: Not at all During the past 4 weeks, how often did your asthma symptoms wake you up at night or earlier than usual in the morning?: Not at all During the past 4 weeks, how often have you had to use your rescue inhaler or nebulizer medication?: Not at all How would you rate your asthma control during the past 4 weeks?: Completely controlled ACT Interpretation: Negative Score: 25 Physical exam (Primary Care) Vital Signs: Last Vital Signs Temp 97.2 F 08/15/25 08:08 Pulse 52 08/15/25 08:08 Resp 12 08/15/25 08:08 BP 104/66 08/15/25 08:08 Pulse Ox 96 08/15/25 08:08 Oxygen Delivery Method Room Air 08/15/25 08:08 BMI result Body Mass Index 25.1 Tobacco/Smoking Status: Tobacco use Status Tobacco use date assessed 08/15/25 08/15/25 08:08 Patient Tobacco Use Status Never used Tobacco 08/15/25 08:08 e-Cigarette/Vaping Use Never Used 08/15/25 08:08 PHQ-9: PHQ-9 Score PHQ-9: Total score 0 08/15/25 08:51 Depression Screening Interpretation: Negative Thrive Assessment: Date of Thrive Assessment Date Thrive assessed 08/15/25 08/15/25 08:08 Currently or been in a relationship where the following occur: No concerns reported Immunizations Boostrix Tdap 2.5 Lf unit-8 mcg-5 Lf/0.5 mL intramuscular syringe Performing Provider: [facility] Grant Performing Location: [facility] [place] Family Medicine Administered by: Divine Obrien MA on 08/15/25 08:51 Dose Route Admin Location Dispensed Lot Number Expiration Date NDC Stained Glass [place] 0.5 mL IM Right Deltoid 0.5 mL [id number] 10/03/27 [id number] [employer] Total Dispensed Waste 0.5 mL 0 % VIS Given Date VIS Provided VIS Publication Date 08/15/25 Single Vaccine 21 Eligibility Eligibility Date Funding Source Not [facility] Eligible 08/15/25 Private Results Reviewed Results Reviewed: 03/2025 ApoB elevated, lipoA normal, CRP normal Laboratory 06/16/25 Result Units Range Interpretation Provider Comments Sodium Level 136 mmol/L (135-145) Potassium Level 4.2 mmol/L (3.3-5.1) Chloride Level 101 mmol/L (96-108) Carbon Dioxide Level 28 mmol/L (22-29) Anion Gap 11 (12-20) Low Blood Urea Nitrogen 14 mg/dL (9-16) Creatinine 0.86 mg/dL (0.5-1.4) Estimated Creatinine Clearance Calc Not Reportable Estimat Glomerular Filtration Rate > 60 Random Glucose 96 mg/dL (60-115) Calcium Level 9.3 mg/dL (8.4-10.2) Total Bilirubin 0.4 mg/dL (0.0-1.0) Direct Bilirubin 0.1 mg/dL (0.0-0.5) Aspartate Amino Transf (AST/SGOT) 52 U/L (5-31) High Alanine Aminotransferase (ALT/SGPT) 51 U/L (0-31) High Alkaline Phosphatase 56 U/L (39-117) Total Protein 7.0 g/dL (6.5-8.0) Albumin 4.2 g/dL (3.5-5.0) Hepatitis A IgM Antibody Nonreactive (Nonreactive) Hepatitis B Surface Antigen Negative (Negative) Hepatitis B Surface Antibody NONREACTIVE (Nonreactive) Hepatitis B Core Total Antibody Nonreactive (Nonreactive) Hepatitis C Antibody (EIA) Nonreactive (Nonreactive) Laboratory 08/02/2025 Result Units Range Interpretation Provider Comments Estimated Average Glucose 103 mg/dL Hemoglobin A1c Percent 5.2 % (<6.0) Triglycerides Level 50 mg/dL (<150) Cholesterol Level 243 mg/dL (<200) High LDL Cholesterol, Calculated 139 mg/dL (<100) High HDL Cholesterol 94 mg/dL (>40) Vitamin B12 Level 1418 pg/mL (200-900) High 25-Hydroxy Vitamin D Total 68.1 ng/mL (>30) Folate 15.0 ng/mL (> or = 4.0) Thyroid Stimulating Hormone (TSH) 3.10 uIU/mL (0.32-4.0) Urine Creatinine 29.94 mg/dL Urine Microalbumin < 5.0 mg/L Urine Microalbumin/Creatinine Ratio TNP Coding Level of Care Code Est Pt Level 4 (29749) Est Pt Prev Care 40-64y(39615) Diagnoses Encounter for general adult medical examination without abnormal findings Z00.00 Pure hypercholesterolemia E78.00 Hyperlipidemia type: pure hypercholesterolemia Slow transit constipation K59.01 Constipation type: slow transit constipation At low risk for open-angle glaucoma in both eyes H40.013 Environmental and seasonal allergies J30.89 Hepatic steatosis K76.0 Menopause Z78.0 Insomnia associated with menopause N95.1 Mild intermittent asthma in adult without complication J45.20 Elevated vitamin B12 level R79.89 Need for Tdap vaccination Z23 History of mammogram Z92.89 History of colonoscopy Z98.890 History of Papanicolaou smear of cervix Z92.89 Additional Codes MARTÍN-7 Assessment Billing - MARTÍN-7 Assessment Tool: MARTÍN-7 Assessment 88538 ([id number]) PHQ-9 - 55441 - PHQ-9 Billing: Yes ([id number]) Asthma Control Questionnaire - ACT Interpretation: Negative ([id number]) Assessment & Plan Assessment & Plan (1) Encounter for general adult medical examination without abnormal findings: Onset Date: ~08/15/25 Code(s): Z00.00 - Encounter for general adult medical examination without abnormal findings Category: Medical (2) Hyperlipidemia: Code(s): E78.5 - Hyperlipidemia, unspecified Category: Medical Qualifiers: Hyperlipidemia type: pure hypercholesterolemia Qualified Code(s): E78.00 - Pure hypercholesterolemia, unspecified (3) Constipation: Code(s): K59.00 - Constipation, unspecified Category: Medical Qualifiers: Constipation type: slow transit constipation Qualified Code(s): K59.01 - Slow transit constipation (4) At low risk for open-angle glaucoma in both eyes: Code(s): H40.013 - Open angle with borderline findings, low risk, bilateral Category: Medical (5) Environmental and seasonal allergies: Code(s): J30.89 - Other allergic rhinitis Category: Medical (6) Hepatic steatosis: Onset Date: ~06/20/25 Comment: The liver demonstrates mildly increased echotexture, consistent with steatosis. There is a 1.1 cm cyst in the left lobe. Code(s): K76.0 - Fatty (change of) liver, not elsewhere classified Category: Medical (7) Menopause: Code(s): Z78.0 - Asymptomatic menopausal state Category: Medical (8) Insomnia associated with menopause: Code(s): N95.1 - Menopausal and female climacteric states Category: Medical (9) Mild intermittent asthma in adult without complication: Code(s): J45.20 - Mild intermittent asthma, uncomplicated Category: Medical (10) Elevated vitamin B12 level: Code(s): R79.89 - Other specified abnormal findings of blood chemistry Category: Medical (11) Need for Tdap vaccination: Code(s): Z23 - Encounter for immunization Category: Medical (12) History of mammogram: Onset Date: ~06/2025 Code(s): Z92.89 - Personal history of other medical treatment Category: Medical (13) History of colonoscopy: Onset Date: ~04/2023 Code(s): Z98.890 - Other specified postprocedural states Category: Medical (14) History of Papanicolaou smear of cervix: Onset Date: ~2021 Code(s): Z92.89 - Personal history of other medical treatment Category: Medical Plan , Orders: Orders Lipid Panel 6 Months E78.00 - Pure hypercholesterolemia, unspecified, R74.8 - Abnormal levels of other serum enzymes, Z00.00 - Encounter for general adult medical examination without abnormal findings Comprehensive Met. Panel 6 Months E78.00 - Pure hypercholesterolemia, unspecified, R74.8 - Abnormal levels of other serum enzymes, Z00.00 - Encounter for general adult medical examination without abnormal findings TDaP Immunization Today Z23 - Encounter for immunization Referrals Ophthalmology Referral H40.013 - Open angle with borderline findings, low risk, bilateral Patient Instructions: Health screenings for women You should visit your health care provider from time to time, even if you are healthy. The purpose of these visits is to: Screen for medical issues Assess your risk for future medical problems Encourage a healthy lifestyle Update vaccinations and other preventive care services Help you get to know your provider in case of an illness Information Even if you feel fine, you should still see your provider for regular checkups. These visits can help you avoid problems in the future. For example, the only way to find out if you have high blood pressure is to have it checked regularly. High blood sugar and high cholesterol levels also may not have any symptoms in the early stages. A simple blood test can check for these conditions. There are specific times when you should see your provider or receive specific health screenings. The [place] Preventive Services Task Force publishes a list of recommended screenings. Below are screening guidelines for women ages 18 to 39. BLOOD PRESSURE SCREENING Your blood pressure should be checked at least once every 3 to 5 years if: Your blood pressure is in the normal range (top number less than 120 mm Hg and bottom number less than 80 mm Hg) You don't have risk factors for high blood pressure Ask your provider if you need your blood pressure checked more often if: The top number is 120 to 129 mm Hg or the bottom number is 70 to 79 mm Hg You have diabetes, heart disease, kidney problems, are overweight, or have certain other health conditions You have a first-degree relative with high blood pressure You are Black You had high blood pressure during a If the top number is 130 mm Hg or greater or the bottom number is 80 mm Hg or greater, this is considered stage 1 hypertension. Schedule an appointment with your provider to learn how you can reduce your blood pressure. Watch for blood pressure screenings in your area. Ask your provider if you can stop in to have your blood pressure checked. BREAST CANCER SCREENING Experts do not agree about the benefits of breast self-exams in finding breast cancer or saving lives. Talk to your provider about what is best for you. A screening mammogram is not recommended for most women under age 40. Your provider may discuss and recommend mammograms, MRI scans, or ultrasounds if you have an increased risk for breast cancer, such as: A mother or sister who had breast cancer at a young age (most often starting screening earlier than the age the close relative was diagnosed) You carry a high-risk genetic marker CERVICAL CANCER SCREENING Cervical cancer screening should start at age 21 years unless your provider advises otherwise. After the first test: Women ages 21 through 29 should have a Pap test every 3 years. Exoprts do not agree on whether HPV testing is recommended for this age group. Women ages 30 through 65 should be screened with either a Pap test every 3 years or the HPV test every 5 years or both tests every 5 years (called cotesting ). Women who have been treated for precancer (cervical dysplasia) should continue to have Pap tests for 20 years after treatment or until age 65, whichever is longer. If you have had your uterus and cervix removed (total hysterectomy), and you have not been diagnosed with cervical cancer or precancer (high grade cervical neoplasia), you do not need cervical cancer screening. CHOLESTEROL SCREENING Cholesterol screening should begin at: Age 45 for women with no known risk factors for coronary heart disease Age 20 for women with known risk factors for coronary heart disease Repeat cholesterol screening should take place: Every 5 years for women with normal cholesterol levels More often if changes occur in lifestyle (including weight gain and diet) More often if you have diabetes, heart disease, kidney problems, or certain other conditions DIABETES SCREENING You should be screened for diabetes starting at age 35 and then repeated every 3 years if you have no risk factors for diabetes. Screening may need to start earlier and be repeated more often if you have other risk factors for diabetes, such as: You have a first degree relative with diabetes. You are overweight or have obesity. You have high blood pressure, prediabetes, or a history of heart disease. Screening for diabetes should be done if you are planning to become and you are overweight and have other risk factors such as high blood pressure. DENTAL EXAM Go to the dentist once or twice every year for an exam and cleaning. Your dentist will evaluate if you need more frequent visits. EYE EXAM Have an eye exam every 5 to 10 years before age 40. If you have vision problems, have an eye exam every 2 years or more often if recommended by your provider. You should have an eye exam that includes an examination of your retina (back of your eye) at least every year if you have diabetes. IMMUNIZATIONS Commonly needed vaccines include: Flu shot: get one every year. COVID-19 vaccine: ask your provider what is best for you. Tetanus-diphtheria and acellular pertussis (Tdap) vaccine: have one at or after age 19 as one of your tetanus-diphtheria vaccines if you did not receive it as an adolescent. Tetanus-diphtheria: have a booster (or Tdap) every 10 years. Varicella vaccine: receive 2 doses if you never had chickenpox or the varicella vaccine. Hepatitis B vaccine: receive 2, 3, or 4 doses, depending on your exact circ umstances. Measles, mumps, and rubella (MMR) vaccine: receive 1 to 2 doses if you are not already immune to MMR. Your provider can tell you if you are immune. Ask your provider about the human papillomavirus (HPV) vaccine if: You have not received the HPV vaccine in the past You have not completed the full vaccine series (you should catch up on this shot) Ask your provider if you should receive other immunizations if you have certain health problems that increase your risk for some diseases such as pneumonia. INFECTIOUS DISEASE SCREENING Women who are sexually active should be screened for chlamydia and gonorrhea up until age 25. Women 25 years and older should be screened for chlamydia and gonorrhea if at high risk. Screening for hepatitis C: All adults ages 18 to 79 should get a one-time test for hepatitis C. people should be screened at every . Screening for human immunodeficiency virus (HIV): All people ages 15 to 65 should get a one-time test for HIV. Depending on your lifestyle and medical history, you may also need to be screened for infections such as syphilis and HIV, as well as other infections. PHYSICAL EXAM All adults should visit their provider from time to time, even if they are healthy. The purpose of these visits is to: Screen for disease Assess your risk of future medical problems Encourage a healthy lifestyle Update your vaccinations and other preventive care services Maintain a relationship with a provider in case of an illness Your height, weight, and BMI should be checked at every exam. During your exam, your provider may ask you about: Depression and anxiety Diet and exercise Alcohol and tobacco use Safety issues, such as using seat belts, smoke detectors, and intimate partner violence Your medicines and risk for interactions SKIN SELF-EXAM Your provider may check your skin for signs of skin cancer, especially if you're at high risk, such as if you: Have had skin cancer before Have close relatives with skin cancer Have a weakened immune system OTHER SCREENING Talk with your provider about colon cancer screening if you have a strong family history of colon cancer or polyps, or if you have had inflammatory bowel disease or polyps yourself. Routine bone density screening of women under 40 is not recommended.
--- OUTSIDE RECORDS SUMMARY | 2025-08-15 08:05 | XMS_ITS | Patient Health Record ---
Author Organization [facility] Address [address] [place] [address] Care Team Providers Care Corrective And Manual Arts Therapist Name Role Phone Lay Tay Primary Care [...] Insured Coverage Start Date Coverage End Date [facility] [address] [place] [address] [phone] [id number] Sammy Tian Self - patient is [...]
[2025-08-15 08:08] VITALS: BP 104/66; PULSE 52; RESP 12; TEMP 36.2; O2SAT 96; BMI 25.1
== END 2025-08-15 08:52 | disposition home or self-care (01) ==
LOC: HO.HMCFM 07:58
PROVIDERS: PCP Nurse Practitioner Family; Visit Provider Nurse Practitioner Family
DX: Z00.00 Encounter for general adult medical examination without abnormal findings (principal); E78.00 Pure hypercholesterolemia, unspecified; K59.01 Slow transit constipation; H40.013 Open angle with borderline findings, low risk, bilateral; J30.89 Other allergic rhinitis; K76.0 Fatty (change of) liver, not elsewhere classified; Z78.0 Asymptomatic menopausal state; N95.1 Menopausal and female climacteric states; J45.20 Mild intermittent asthma, uncomplicated; R79.89 Other specified abnormal findings of blood chemistry; Z23 Encounter for immunization; Z92.89 Personal history of other medical treatment

== ENCOUNTER → 2025-08-15 07:57 | Outpatient (BNVA) | payer BC, SELFPAY | PROVIDERS: PCP Nurse Practitioner Family; Visit Provider Nurse Practitioner Family | DX: Z00.00 Encounter for general adult medical examination without abnormal findings (principal); J45.20 Mild intermittent asthma, uncomplicated; G47.00 Insomnia, unspecified; E55.9 Vitamin D deficiency, unspecified; K76.0 Fatty (change of) liver, not elsewhere classified; E78.5 Hyperlipidemia, unspecified; K59.00 Constipation, unspecified; E78.00 Pure hypercholesterolemia, unspecified; K59.01 Slow transit constipation; H40.013 Open angle with borderline findings, low risk, bilateral; J30.89 Other allergic rhinitis; N95.1 Menopausal and female climacteric states; R79.89 Other specified abnormal findings of blood chemistry; Z23 Encounter for immunization | CPT/HCPCS: 90471; 90715; 96127; 96160 ==